=== PATIENT | female | born 1980 | race Caucasian/White ===

== ENCOUNTER 2021-10-07 07:37 | Outpatient (REF) | payer OTHER, SELFPAY | END 2021-10-07 07:38 | disposition home or self-care (01) | LOC: HO.HMGCLDS 07:37 | PROVIDERS: Visit Provider Internal Medicine | DX: Z20.822 Contact with and (suspected) exposure to COVID-19 (principal) | CPT/HCPCS: C9803; U0003; U0005 ==

== ENCOUNTER 2022-02-04 14:49 | Outpatient (REF) | payer OTHER, SELFPAY ==
--- NOTE | ~2022-02-04 | MM_ITS ---
EXAMINATION: MM DIAGNOSTIC DIGITAL BREAST TOMOSYNTHESIS, BILATERAL TARGETED LEFT BREAST ULTRASOUND CLINICAL INFORMATION: Left axillary pain and lump for a few months. The lifetime risk of breast cancer based on the Tyrer-Cuzick Model is 22.0%. Additional annual screening with breast MRI may be of benefit in women with a score of 20% or greater. COMPARISON: Mammography: None. TECHNIQUE: Digital breast tomosynthesis is performed in both the craniocaudal and mediolateral oblique views along with computer-aided detection (CAD). Synthesized 2D images are generated from the tomosynthesis. Spot compression view of the deep left breast on craniocaudal view was also performed. Targeted left breast ultrasound in region of pain within the axilla as well as about the deep central aspect of the left breast. FINDINGS: The breasts are heterogeneously dense, which may obscure small masses (ACR BI-RADS breast composition Category c). Within the right breast no suspicious abnormal dominant mass or grouping of microcalcifications identified. No region of architectural distortion is appreciated with tomographic image demonstrating one question region of architectural distortion to represent superimposition of fibroglandular tissue. Within the left breast about the deep central aspect seen on craniocaudal view there was a question of asymmetric density for which spot compression view was performed. On spot compression view the region of initial concern compressed out. On the spot compression film there was questioned to be a second separate density which was not seen on the first image and on initial tomographic view. This appears to be related to superposition of fibroglandular tissue as well. Targeted ultrasound evaluation about the region of pain in the axilla did not demonstrate any abnormal cystic or solid mass. No region of abnormal distal sound shadowing was appreciated. Targeted ultrasound evaluation to the deep central aspect of the left breast did not demonstrate any abnormal mass or shadowing. At the time of the initial examination patient was given recommendation of routine mammography, however, after further review of imaging and considering the patient's Tyrer-Cuzick model risk of 22% I am recommending 6-month followup left breast mammography. Breast MRI could be considered. MM/MM tomosynthesis diagnostic BI IMPRESSION: No suspicious right breast abnormality appreciated. Left breast densities appear to be related to superimposition of fibroglandular tissue. No ultrasound abnormality identified in region of pain within the left axilla as well as some scanning of the deep central aspect of the left breast. ASSESSMENT: BI-RADS 3: Probably Benign RECOMMENDATION: Diagnostic mammography in 6 months. Consideration of breast MRI. The patient will be called by patient navigator on Monday discussing the followup in 6 months. This patient's information was entered into a reminder system with a target due date for their next mammogram.
--- NOTE | ~2022-02-04 | US_ITS ---
EXAMINATION: US DIAGNOSTIC ULTRASOUND BREAST, LEFT CLINICAL INFORMATION: Mastodynia. COMPARISON: Mammography of same day. TECHNIQUE: Ultrasound of the breast is performed with real-time mcghee scale imaging and color Doppler. FINDINGS: Targeted ultrasound evaluation about the region of pain in the axilla did not demonstrate any abnormal cystic or solid mass. No region of abnormal distal sound shadowing was appreciated. Targeted ultrasound evaluation to the deep central aspect of the left breast did not demonstrate any abnormal mass or shadowing. At the time of the initial examination patient was given recommendation of routine mammography however after further review of imaging and considering the patient's entire model risk of 22% I recommend 6 month follow-up left breast mammography. US/US breast LT limited IMPRESSION: No suspicious right breast abnormality appreciated. Left breast densities appear to be related to superimposition of fibroglandular tissue. No ultrasound abnormality identified in region of pain within the left axilla as well as some scanning of the deep central aspect of the left breast. ASSESSMENT: BI-RADS 3: Probably Benign RECOMMENDATION: Diagnostic mammography in 6 months. Consideration of breast MRI. .
== END 2022-02-04 14:50 | disposition home or self-care (01) ==
LOC: HO.MAMMO 14:49
PROVIDERS: PCP Internal Medicine; Visit Provider Internal Medicine
DX: N64.4 Mastodynia (principal)
CPT/HCPCS: 76642; 77062; 77066

== ENCOUNTER 2022-09-08 08:35 | Outpatient (REF) | payer OTHER, SELFPAY ==
--- NOTE | ~2022-09-08 | MM_ITS ---
EXAMINATION: MM DIAGNOSTIC DIGITAL BREAST TOMOSYNTHESIS, LEFT CLINICAL INFORMATION: Short interval follow-up from diagnostic baseline for scattered parenchymal densities. Age 42. COMPARISON: Mammography: 02/04/2022 (baseline) left breast ultrasound 02/04/2022. TECHNIQUE: Digital breast tomosynthesis is performed in both the craniocaudal and mediolateral oblique views along with computer-aided detection (CAD). Synthesized 2D images are generated from the tomosynthesis. FINDINGS: There are scattered areas of fibroglandular density (ACR BI-RADS breast composition Category b). Parenchymal pattern is similar to baseline exam. There is no interval mass or developing density or architectural abnormality. The axilla and skin contours are unremarkable. Results are provided to the patient at time of visit by the technologist. MM/MM tomosynthesis diagnostic LT IMPRESSION: No mammographic evidence of malignancy. ASSESSMENT: BI-RADS 2: Benign RECOMMENDATION: Routine annual mammography screening, due in 6 months. This patient's information was entered into a reminder system with a target due date for their next mammogram.
== END 2022-09-08 08:36 | disposition home or self-care (01) ==
LOC: HO.MAMMO 08:35
PROVIDERS: Visit Provider Internal Medicine
DX: R92.2 Inconclusive mammogram (principal)
CPT/HCPCS: 77061; 77065

== ENCOUNTER 2022-12-31 09:57 | Outpatient (REF) | payer OTHER, SELFPAY ==
[2022-12-31 11:05] LABS: MANUAL DIFF FLAG NO
[2022-12-31 11:14] LABS: Basophils Percent Auto 0.5 % (0-2); Eosinophils Absolute Auto 0.2 X10*3/uL (0.0-0.4); Hematocrit 40.7 % (37.0-47.0); Hemoglobin 13.6 g/dl (12.0-16.0); Imm Gran Abs Auto 0.02 X10*3/uL (0.00-0.03); Imm Gran Pct Auto 0.3 % (0.0-0.4); Lymphocytes Absolute Auto 1.9 X10*3/uL (1.2-4.9); Lymphocytes Percent Auto 30.9 % (20-40); Mean Corpuscular HGB Conc 33.4 g/dl (31.0-35.0); Mean Corpuscular Hemoglobin 28.4 pg (27.0-33.0); Mean Platelet Volume 9.8 fL (9.4-12.3); Monocytes Absolute Auto 0.4 X10*3/uL (0.1-1.2); Monocytes Percent Auto 6.1 % (2-11); Neutrophils Absolute Auto 3.6 x10*3/uL (2.0-8.3); Neutrophils Percent Auto 59.2 % (45-73); Platelet Count 266 X10*3/uL (160-400); Red Blood Count 4.79 X10*6/uL (4.20-5.50); Red Cell Distribution Width 12.6 % (11.0-16.0); White Blood Count 6.1 X10*3/uL (4.8-10.8)
[2022-12-31 12:03] LABS: Alanine Aminotransferase 18 U/L (0-31); Albumin Level 3.8 g/dL (3.5-5.0); Alkaline Phosphatase 38 U/L (39-117); Anion Gap 11 (12-20); Aspartate Amino Transferase 17 U/L (5-31); Bilirubin Total 0.5 mg/dL (0.0-1.0); Blood Urea Nitrogen 10 mg/dL (9-16); Calcium 8.2 mg/dL (8.4-10.2); Carbon Dioxide 23 mmol/L (22-29); Chloride 108 mmol/L (96-108); Cholesterol 147 mg/dL; Estimated Glomerular Filt Rate > 60; Glucose Fasting 92 mg/dL (60-99); HDL Cholesterol 40 mg/dL; Iron 73 mcg/dL (30-160); LDL Cholesterol Calculated 98 mg/dl; Percent Iron Saturation 27 % (15-50); Potassium 4.3 mmol/L (3.3-5.1); Sodium 138 mmol/L (135-145); Total Iron Binding Capacity 270 mcg/dL (228-428); Total Protein 6.3 g/dL (6.5-8.0); Triglycerides 45 mg/dL; Unsaturated Iron Binding 197 ug/dL
[2022-12-31 12:19] LABS: TSH reflex Free T4 1.19 uIU/mL (0.32-4.0)
[2023-01-02 06:34] LABS: Follicle Stimulating Hormone 3.3 mIU/mL
== END 2022-12-31 09:58 | disposition home or self-care (01) ==
LOC: HO.HMGCLDS 09:57
PROVIDERS: PCP Internal Medicine; Visit Provider Internal Medicine
DX: Z00.00 Encounter for general adult medical examination without abnormal findings (principal); F41.9 Anxiety disorder, unspecified
CPT/HCPCS: 36415; 80053; 80061; 83001; 83540; 84443; 85025

== ENCOUNTER 2023-01-04 08:52 | Outpatient (REF) | payer OTHER, SELFPAY ==
--- NOTE | ~2023-01-04 | US_ITS ---
EXAMINATION: US THYROID CLINICAL INFORMATION: Nontoxic goiter, unspecified. COMPARISON: None available. TECHNIQUE: Linear transducer grayscale and color Doppler examination with attention to the region of the thyroid. FINDINGS: SIZE: Measurements of the thyroid lobes and nodules are given in sagittal, anteroposterior and transverse dimensions respectively. Right Thyroid Lobe: 5.1 x 2.2 x 1.4 cm, volume 7.9 mL. Parenchyma: The gland echotexture is heterogeneous. Thyroid vascularity is increased. Left Thyroid Lobe: 3.6 x 1.4 x 1.6 cm, volume 4.4 mL. Parenchyma: The gland echotexture is homogeneous. Thyroid vascularity is increased. Isthmus: 0.3 cm in maximum AP dimension. Estimated total number of nodules greater than or equal to 1 cm: 3. Tassel Maker nodules are described as follows: 1. Location: Right mid. Size: 1.0 x 0.90 x 0.83 cm, volume 0.40 mL. Nodule characteristics: Composition: Solid (2). Echogenicity: Very hypoechoic (3). Shape: Taller than wide (3). Margins: Smooth (0). Echogenic Foci: Macrocalcifications (1). Peripheral calcifications (2). ACR TI-RADS total points: 11 ACR TI-RADS category: 5 2. Location: Right inferior. Size: 1.2 x 0.64 x 1.3 cm, volume 0.50 mL. Nodule characteristics: Composition: Solid/almost completely solid (2). Echogenicity: Cannot be determined (1). Shape: Not taller than wide (0). Margins: Smooth (0). Echogenic Foci: Macrocalcifications (1). ACR TI-RADS total points: 4 ACR TI-RADS category: 4 3. Location: Right inferior. Size: 1.3 x 0.75 x 1.1 cm, volume 0.55 mL. Nodule characteristics: Composition: Mixed cystic and solid (1). Echogenicity: Cannot be determined (1). Shape: Not taller than wide (0). Margins: Smooth (0). Echogenic Foci: None (0). ACR TI-RADS total points: 2 ACR TI-RADS category: 2 NODES: No lymphadenopathy is seen in the tissue surrounding the thyroid gland. US/US thyroid IMPRESSION: Heterogeneous hypervascular thyroid gland, nonspecific. There is a 1 cm right mid gland TR 5 nodule for which further evaluation with FNA is recommended. There is a 1.3 cm right lower gland TR 4 nodule, for which a follow-up ultrasound in one year is advised. There is a 1.3 cm right lower gland TR 2 nodule, not meeting size criteria for further evaluation. ACR TI-RADS RECOMMENDATION REFERENCE: Ultrasound-guided fine-needle aspiration, followup ultrasound, no further follow up. * TR1 (0 point) and TR2 (2 points): No FNA or follow up. * TR3 (3 points): FNA if more than or equal to 2.5 cm in maximum dimension, followup ultrasound in 1, 3 and 5 years if 1.5 to 2.4 cm in maximum dimension. * TR4 (4-6 points): FNA if more than or equal to 1.5 cm in maximum dimension, followup ultrasound in 1, 2, 3 and 5 years if 1 to 1.4 cm in maximum dimension. * TR5 (more than or equal to 7 points): FNA if more than or equal to 1 cm in maximum dimension, followup ultrasound every year for 5 years if 0.5 to 0.9 cm in maximum dimension. * TR3, TR4 or TR5 nodules that are below the size threshold for followup receive no follow up.
== END 2023-01-04 08:53 | disposition home or self-care (01) ==
LOC: HO.HMGCX 08:52
PROVIDERS: PCP Internal Medicine; Visit Provider Internal Medicine
DX: E04.9 Nontoxic goiter, unspecified (principal)
CPT/HCPCS: 76536

== ENCOUNTER → 2023-01-18 09:46 | Outpatient (BNVA) | payer OTHER, SELFPAY | PROVIDERS: PCP Internal Medicine; Visit Provider Internal Medicine | DX: Z13.89 Encounter for screening for other disorder (principal) ==

== ENCOUNTER 2023-02-02 08:51 | Outpatient (REF) | payer OTHER, SELFPAY | END 2023-02-02 08:52 | disposition home or self-care (01) | LOC: HO.LNP 08:51 | PROVIDERS: PCP Internal Medicine; Visit Provider Surgery | DX: D17.22 Benign lipomatous neoplasm of skin and subcutaneous tissue of left arm (principal) | CPT/HCPCS: 11401; 11402; 88304 ==

== ENCOUNTER → 2023-02-15 08:53 | Outpatient (BNVA) | payer OTHER, SELFPAY | PROVIDERS: PCP Internal Medicine; Visit Provider Surgery ==

== ENCOUNTER 2023-03-23 08:01 | Outpatient (REF) | payer OTHER, SELFPAY ==
--- NOTE | 2023-03-23 08:45 | P.BOP_ITS ---
Brief Operative Note Date of Service: 03/23/23 Pre-op diagnosis: Multinodular Thyroid Procedure: This is doctor Lisa Ramachandran. This is an ultrasound-guided fine-needle aspiration report. Indication: Multinodular Thyroid Porcedure: Procedure was explained to the patient. Alternatives, the risk and benefits were discussed. Written consent was obtained. A time-out was also obtained. After sterile preparation, 1 ml of 1% lidocaine solution was applied subcutaneously for anesthetic effect. Then Fine-needle aspiration of a right lower pole lateral 1.0 cm thyroid nodule was performed using direct ultrasound guidance to confirm accurate needle placement. Three aspirations were made using 27 gauge needles. Samples were submitted for cytology. One pass was dedicated for [employer] Gene sequencing judicial registrar testing. Then Fine-needle aspiration of a right lower pole medial 1.1 cm thyroid nodule was performed using direct ultrasound guidance to confirm accurate needle placement. Three aspirations were made using 27 gauge needles. Samples were submitted for cytology. One pass was dedicated for Afir[employer] Gene sequencing judicial registrar testing. The patient tolerated the procedure well. Aftercare instructions were provided. Impression: Uncomplicated fine needle aspiration biopsy of a right lower pole lateral 1.0 cm thyroid nodule and a right lower pole medial 1.1 cm thyroid nodule under ultrasound guidance. Surgeon: Lisa Ramachandran, DO Was an Video Games Mechanic used for this Procedure?: No Estimated blood loss (mL): 0
== END 2023-03-23 08:02 | disposition home or self-care (01) ==
LOC: HO.US 08:01
PROVIDERS: PCP Internal Medicine; Visit Provider Internal Medicine
DX: E04.2 Nontoxic multinodular goiter (principal)
CPT/HCPCS: 10005; 10006; 88172; 88173

== ENCOUNTER 2023-05-04 13:03 | Outpatient (AMB) | payer OTHER, SELFPAY ==
--- NOTE | 2023-05-04 13:12 | A.OFFVIS_ITS ---
Intake Intake Visit Reasons: FNA Results Allergies No Known Allergies Allergy (Verified 05/04/23 13:12) Medication List - Last Reconciled 05/04/23 by Lisa Ramachandran, DO bupropion HCl 300 mg PO QAM HPI HPI Comments History of Present Illness Details 42 YO Female who is seen in F/U for a multinodular thyroid. She states her PCP palpated a thyroid nodule during her yearly physical. A thyroid US was subsequently ordered which revealed multiple bilateral nodules. She was subsequently referred to Endocrinology. 03/23/2023 she underwent FNA biopsy of her right lower pole 1.0 cm and right lower pole 1.1 cm thyroid nodules. Both with benign cytology. She does report the sensation of swelling in the neck and occasional R sided early pain. She denies any compressive symptoms currently. TSH was WNL. She denies any personal history of head or neck irradiation. She denies any f amily history of thyroid cancer. Thyroid US: 01/04/2023 Right Thyroid Lobe: 5.1 x 2.2 x 1.4 cm, volume 7.9 mL. Parenchyma: The gland echotexture is heterogeneous. Thyroid vascularity is increased. Left Thyroid Lobe: 3.6 x 1.4 x 1.6 cm, volume 4.4 mL. Parenchyma: The gland echotexture is homogeneous. Thyroid vascularity is increased. Isthmus: 0.3 cm in maximum AP dimension. Estimated total number of nodules greater than or equal to 1 cm: 3. Casing Machine Operator nodules are described as follows: 1. Location: Right mid. ?? ? Size: 1.0 x 0.90 x 0.83 cm, volume 0.40 mL. ?? ? Nodule characteristics: ?? ? Composition: Solid (2). ?? ? Echogenicity: Very hypoechoic (3). ?? ? Shape: Taller than wide (3). ?? ? Margins: Smooth (0). ?? ? Echogenic Foci: Macrocalcifications (1). Peripheral calcifications (2). ?? ? ACR TI-RADS total points: 11 ?? ? ACR TI-RADS category: 5 2. Location: Right inferior. ?? ? Size: 1.2 x 0.64 x 1.3 cm, volume 0.50 mL. ?? ? Nodule characteristics: ?? ? Composition: Solid/almost completely solid (2). ?? ? Echogenicity: Cannot be determined (1). ?? ? Shape: Not taller than wide (0). ?? ? Margins: Smooth (0). ?? ? Echogenic Foci: Macrocalcifications (1). ?? ? ACR TI-RADS total points: 4 ?? ? ACR TI-RADS category: 4 3. Location: Right inferior. ?? ? Size: 1.3 x 0.75 x 1.1 cm, volume 0.55 mL. ?? ? Nodule characteristics: ?? ? Composition: Mixed cystic and solid (1). ?? ? Echogenicity: Cannot be determined (1). ?? ? Shape: Not taller than wide (0). ?? ? Margins: Smooth (0). ?? ? Echogenic Foci: None (0). ?? ? ACR TI-RADS total points: 2 ?? ? ACR TI-RADS category: 2 NODES: No lymphadenopathy is seen in the tissue surrounding the thyroid gland. 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 She will F/U in 1 years time with a repeat thyroid US and labs in order to assess for concerning growth or changes which may warrant repeat biopsy. I advised her to notify us of any compressive symptoms in the meantime. All questions were answered. She is in agreement with this plan of care. I spent 20 minutes in reviewing the record, seeing the patient and documenting in the medical record, including 5 minutes on the phone with the Patient. Telehealth Telehealth Location of provider rendering services: practice address Location of patient: address on file Patient Identification confirmed using: Name, : Yes Telehealth method: voice only Patient verbally consented to treatment: Yes Patient verbally consented to billing insurance company: Yes Patient informed of any privacy concerns related to visit: Yes Coding Level of Care Code Tele Est Pt Level 3 (07213) Diagnoses Multinodular thyroid E04.2
== END 2023-05-04 13:14 | disposition home or self-care (01) ==
LOC: HO.ENCR 13:03
PROVIDERS: PCP Internal Medicine; Visit Provider Internal Medicine
DX: E04.2 Nontoxic multinodular goiter (principal)
CPT/HCPCS: 99213

== ENCOUNTER → 2023-05-04 13:03 | Outpatient (BNVA) | payer OTHER, SELFPAY | PROVIDERS: PCP Internal Medicine; Visit Provider Internal Medicine ==

== ENCOUNTER 2023-05-30 13:25 | Outpatient (AMB) | payer OTHER, SELFPAY ==
--- NOTE | 2023-05-30 13:31 | MHC.OFFWIV ---
Intake Vital Signs 05/30/23 13:35 Height 5 ft 3 in Weight 190 lb BMI 33.7 BP 92/70 Blood Pressure Location Lt brachial Position Sitting Pulse 76 Pulse Source Pulse Oximeter Temp 98.2 F Temp Source Oral Pulse Oximetry (%) 98 Oxygen Delivery Method Room Air Intake Visit Reasons: EP Chest pressure/tired Intake Note: Patient here because she woke up this morning chest pressure, states its happened a few times and will come and go but when it happens it will last a couple of hours and feels winded/weak. Patient Tobacco Use Status: Former Tobacco user (6 years ago ) Allergies No Known Allergies Allergy (Verified 05/30/23 13:34) Do you need a note to return to daycare/school/sports/work: Yes HPI EP Chest pressure/tired HPI Details 42-year-old female patient presents today for complaint of intermittent midsternal chest pressure. She reports this has been ongoing for about a year. She reports that she would experienced midsternal chest pressure radiating to the knees her left breast, and this will last upwards of a couple of hours. It is not associated with any dizziness, shortness of breath, arm weakness or pain, jaw pain, nausea/vomiting, or palpitations. She does not associated with any particular events, for example it does not occur after any exercise or stressful event. Denies any cardiac history. Sees Dr. Paez for PCP. Recent annual exam in December without abnormal findings. She came in today as she had an episode of this pressure this morning. On Wellbutrin only. 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, 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 Tobacco Use Status: Former Tobacco user (6 years ago ) Tobacco use type: Cigarette Years Smoked: 20 plus e-Cigarette/Vaping Use: Currently Using service: No Current occupational status: employed Cognitive needs: No Hearing needs: No Vision needs: Yes Review of Systems Const All systems reviewed & are unremarkable except as noted in HPI and below Physical Exam Vital Signs: Last Vital Signs Temp 98.2 F 05/30/23 13:35 Pulse 76 05/30/23 13:35 BP 92/70 05/30/23 13:35 Pulse Ox 98 05/30/23 13:35 Oxygen Delivery Method Room Air 05/30/23 13:35 BMI result Body Mass Index 33.7 Const General: cooperative, healthy appearing, comfortable and no acute distress Nutritional Appearance: average body habitus Neck Neck: Yes no lymphadenopathy Chest Chest palpation & inspection: normal inspection of the chest and normal palpation of entire chest wall Resp Effort & Inspection: normal respiratory effort and able to speak in complete sentences Auscultation: clear to auscultation bilaterally Cardio Jugular venous distension: no JVD Palpation: normal PMI Rate: regular rate Rhythm: regular rhythm Heart sounds: S1 normal heart sound present and S2 normal heart sound present Peripheral pulses: Peripheral pulses 2+ throughout Skin General skin exam: no rashes or lesions noted Extrem General: Yes capillary refill normal and Yes no clubbing, cyanosis or edema Psych Appearance: grossly normal Mental Status: mental status grossly normal Speech and movement: Normal speech and movement present Assessment & Plan Assessment & Plan (1) Chest pressure: Code(s): R07.89 - Other chest pain Plan: Patient with intermittent chest pain for about 1 year now. No prior workup for this. It is not associated with any dizziness, shortness of breath, arm weakness or pain, jaw pain, nausea/vomiting, or palpitations. Not associated with exertion or stress per patient. Vitals in the office are stable. EKG done in the office shows normal findings, NSR 69. I discussed with patient that the ED would be the most appropriate environment to rule out cardiac event, which she understands. She does not with to be evaluated in ED at this time. I would like her to f/u with her PCP Dr. Paez in the near future for possible additional workup for this. She agrees and will contact office to schedule visit. If symptoms worsen or new symptoms occur, she should go to the ED for prompt evaluation. She verbalizes understanding of this and agrees to plan. Orders: Orders AMB EKG-In Office Today R07.89 - Other chest pain Coding Level of Care Code Est Pt Level 3 (06760) Diagnoses Chest pressure R07.89
[2023-05-30 13:35] VITALS: BP 92/70; PULSE 76; TEMP 36.8; O2SAT 98; BMI 33.7
== END 2023-05-30 14:15 | disposition home or self-care (01) ==
PROVIDERS: PCP Internal Medicine; Visit Provider Nurse Practitioner Family
DX: R07.89 Other chest pain (principal)
CPT/HCPCS: 93000; 99213

== ENCOUNTER 2023-05-31 08:02 | Outpatient (REF) | payer OTHER, SELFPAY ==
[2023-05-31 12:33] LABS: Free T4 (Free Thyroxine) 0.82 ng/dL (0.71-1.85); Thyroid Stimulating Hormone 1.36 uIU/mL (0.32-4.0)
== END 2023-05-31 08:03 | disposition home or self-care (01) ==
LOC: HO.HMGCLDS 08:02
PROVIDERS: PCP Internal Medicine; Visit Provider Internal Medicine
DX: E04.2 Nontoxic multinodular goiter (principal)
CPT/HCPCS: 36415; 84439; 84443

== ENCOUNTER 2024-01-03 11:20 | Outpatient (AMB) | payer OTHER, SELFPAY ==
[2024-01-03 11:46] VITALS: BP 118/72; PULSE 87; O2SAT 99; BMI 31.9
--- NOTE | 2024-01-03 11:46 | MHC.PC.OV ---
Vital Signs 01/03/24 11:46 Height 5 ft 3 in Weight 180 lb BMI 31.9 BP 118/72 Blood Pressure Location Rt brachial Position Sitting Pulse 87 Pulse Source Pulse Oximeter Pulse Oximetry (%) 99 Oxygen Delivery Method Room Air Intake Visit Reasons: Annual PE Intake Note: Pt is here for her Annual PE Is last menstrual period known: Yes Last menstrual period: 12/18/23 Allergies No Known Allergies Allergy (Verified 01/03/24 11:51) Medication List - Last Reconciled 01/03/24 by Yudith Paez MD bupropion HCl 300 mg PO QAM Tobacco use date assessed: 01/03/24 Dental Screening Dental Screen Date: 01/03/24 Did you have a dental visit in the last 12 months?: Yes Did you have a dental problem in the last 6 months where you did not have access to dental care?: No Was dental information given to patient?: Patient has dentist HPI Annual PE HPI Details Pt presents for PE. 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 1. Little interest or pleasure in doing things: several days 2. Feeling down, depressed, or hopeless: several days 3. Trouble falling or staying asleep, or sleeping too much: more than half the days 4. Feeling tired or having little energy: several days 5. Poor appetite or overeating: not at all 6. Feeling bad about yourself - or that you are a failure or have let yourself or your family down: more than half the days 7. Trouble concentrating on things, such as reading the newspaper or watching television: several days 8. Moving or speaking so slowly that other people could have noticed. Or the opposite - being so fidgety or restless that you have been moving around a lot more than usual: not at all 9. Thoughts that you would be better off or of hurting yourself in some way: not at all Total score: 8 Depression Screening Interpretation: Negative Depression Screening Done: Yes Source: Developed by Drs. Raymundo Weinstein, Estrella Danielle, Denzel Fong and colleagues, with an educational monisha from [employer]. Thrive Questionnaire Date Thrive assessed: 01/03/24 I am a: Patient What is your living situation today?: I have a steady place to live Within the past 12 months, did the food you bought not last and you didn't have the money to get more?: Never true Within the past 12 months, did you worry whether your food would run out before you got money to buy more?: Never true Do you have trouble paying for medicines?: No Do you have trouble getting transportation to medical appointments?: No Do you have trouble paying your heating and electricity bill?: No Do you have trouble taking care of your child, family member or friend?: No Do you have trouble with day-to-day activities such as bathing, preparing meals, shopping, managing finances, etc.?: No Are you currently unemployed and looking for a job?: No Are you interested in more education?: No THRIVE Score: 0 AUDIT C Alcohol Use Questionnaire (AUDIT-C) 1. How often do you have a drink containing alcohol?: Never Total Score: 0 ANANDA-7 AMB Questionnaire ANANDA-7 Date ANANDA - 7 assessed: 01/03/24 Feeling nervous, anxious, or on edge: 3 = Nearly every day Not being able to stop or control worryin = More than half the days Worrying too much about different things: 2 = More than half the days Trouble relaxin = Several days Being so restless that it is hard to sit still: 2 = More than half the days Becoming easily annoyed or irritable: 3 = Nearly every day Feeling afraid as if something awful might happen: 2 = More than half the days Total ANANDA-7 score (0-4 normal; 5-9 mild; 10-14 moderate; 15-21 severe): 15 Source: Developed by Drs. Raymundo Weinstein, Estrella Danielle, Denzel Fong and colleagues, with an educational monisha from [employer]. Review of Systems Const All systems reviewed & are unremarkable except as noted in HPI and below Reports no additional complaints Eyes Reports no additional complaints ENT Reports no additional complaints Card Reports no additional complaints Resp Reports no additional complaints GI Reports no additional complaints Reports no additional complaints Physical exam (Primary Care) Vital Signs: Last Vital Signs Pulse 87 01/03/24 11:46 BP 118/72 01/03/24 11:46 Pulse Ox 99 01/03/24 11:46 Oxygen Delivery Method Room Air 01/03/24 11:46 BMI result Body Mass Index 31.9 Tobacco/Smoking Status: Tobacco use Status Tobacco use date assessed 01/03/24 01/03/24 11:53 Patient Tobacco Use Status Former Tobacco user (6 years 01/03/24 11:53 ago ) Tobacco use type Cigarette 01/03/24 11:53 e-Cigarette/Vaping Use Currently Using 01/03/24 11:53 PHQ-9: PHQ-9 Score PHQ-9: Total score 8 01/03/24 12:06 Depression Screening Interpretation: Negative Thrive Assessment: Date of Thrive Assessment Date Thrive assessed 01/03/24 01/03/24 11:56 Const General: no acute distress HENMT Head: Yes normal to inspection Ears: hearing grossly normal bilaterally General nose exam: Normal external nose present Face and sinus: Yes normal facial exam Mouth: Normal oral and palatal mucosa present Throat: Yes posterior oropharynx normal Eyes General: appearance normal, both eyes and all related structures Neck Neck: Yes no lymphadenopathy and Yes supple Resp Effort & Inspection: normal respiratory effort Auscultation: clear to auscultation bilaterally Cardio Rhythm: regular rhythm Heart sounds: S1 normal heart sound present and S2 normal heart sound present GI Inspection: Yes normal to inspection Palpation (GI): Soft to palpation Percussion: Yes normal to percussion Auscultation: normal bowel sounds Assessment and Plan Assessment & Plan (1) Multinodular thyroid: Comment: 2 nodules bx negative 02/28, f/u [facility] [place], patient needs annual thyroid ultrasound to monitor Code(s): E04.2 - Nontoxic multinodular goiter Plan: Schedule thyroid US (2) Thyroid nodule: Code(s): E04.1 - Nontoxic single thyroid nodule (3) Perimenopausal: Code(s): N95.1 - Menopausal and female climacteric states Plan: check FSH, f/u with leasing specialist (4) Depression: Code(s): F32.9 - Major depressive disorder, single episode, unspecified Plan: Continue bupropion, stress and anxiety management regular physical activity and mindfulness discussed with the patient (5) Annual physical exam: Code(s): Z00.00 - Encounter for general adult medical examination without abnormal findings Plan: Well-balanced diet regular physical activity discussed with the patient .she is up-to-date with the mammogram and Pap smear by leasing specialist Orders: Orders Comprehensive [place]. Panel Fast Today E04.2 - Nontoxic multinodular goiter, F32.9 - Major depressive disorder, single episode, unspecified, N95.1 - Menopausal and female climacteric states, Z00.00 - Encounter for general adult medical examination without abnormal findings Complete Blood Count Auto Diff Today E04.2 - Nontoxic multinodular goiter, F32.9 - Major depressive disorder, single episode, unspecified, N95.1 - Menopausal and female climacteric states, Z00.00 - Encounter for general adult medical examination without abnormal findings Lipid Panel Today E04.2 - Nontoxic multinodular goiter, F32.9 - Major depressive disorder, single episode, unspecified, N95.1 - Menopausal and female climacteric states, Z00.00 - Encounter for general adult medical examination without abnormal findings TSH reflex Free T4 Today E04.2 - Nontoxic multinodular goiter, F32.9 - Major depressive disorder, single episode, unspecified, N95.1 - Menopausal and female climacteric states, Z00.00 - Encounter for general adult medical examination without abnormal findings Vitamin D 25-OH Total Today E04.2 - Nontoxic multinodular goiter, F32.9 - Major depressive disorder, single episode, unspecified, N95.1 - Menopausal and female climacteric states, Z00.00 - Encounter for general adult medical examination without abnormal findings US thyroid Today E04.1 - Nontoxic single thyroid nodule, E04.2 - Nontoxic multinodular goiter UA w Microscopic Today E04.2 - Nontoxic multinodular goiter, F32.9 - Major depressive disorder, single episode, unspecified, N95.1 - Menopausal and female climacteric states, Z00.00 - Encounter for general adult medical examination without abnormal findings Follicle Stimulating Hormone Today E04.2 - Nontoxic multinodular goiter, F32.9 - Major depressive disorder, single episode, unspecified, N95.1 - Menopausal and female climacteric states, Z00.00 - Encounter for general adult medical examination without abnormal findings Medications: Refilled bupropion HCl 300 mg PO QAM 90 tabs 3RF Coding Level of Care Code Est Pt Prev Care 40-64y(03021) Diagnoses Multinodular thyroid E04.2 Thyroid nodule E04.1 Perimenopausal N95.1 Depression F32.9 Annual physical exam Z00.00
== END 2024-01-03 12:29 | disposition home or self-care (01) ==
PROVIDERS: PCP Internal Medicine; Visit Provider Nurse Practitioner Family
DX: Z00.00 Encounter for general adult medical examination without abnormal findings (principal); N95.1 Menopausal and female climacteric states; E04.2 Nontoxic multinodular goiter; E04.1 Nontoxic single thyroid nodule; F32.9 Major depressive disorder, single episode, unspecified
CPT/HCPCS: 99396

== ENCOUNTER 2024-01-16 08:01 | Outpatient (REF) | payer OTHER, SELFPAY ==
--- NOTE | ~2024-01-16 | US_ITS ---
EXAMINATION: US THYROID CLINICAL INFORMATION: Nontoxic multinodular goiter. COMPARISON: Thyroid ultrasound 01/04/2023. Ultrasound-guided thyroid biopsy 03/23/2023. TECHNIQUE: Linear transducer grayscale and color Doppler examination with attention to the region of the thyroid. FINDINGS: SIZE: Measurements of the thyroid lobes and nodules are given in sagittal, anteroposterior and transverse dimensions respectively. Right Thyroid Lobe: 5.2 x 2.1 x 1.3 cm, volume 7.3 mL. Previously 5.1 x 2.2 x 1.4 cm, volume 7.9 mL. Parenchyma: The gland echotexture is heterogeneous. Thyroid vascularity is increased. Left Thyroid Lobe: 3.7 x 1.1 x 1.5 cm, volume 3.0 mL. Previously 3.6 x 1.4 x 1.6 cm, volume 4.4 mL. Parenchyma: The gland echotexture is heterogeneous. Thyroid vascularity is increased. Isthmus: 0.4 cm in maximum AP dimension. Previously 0.3 cm. Estimated total number of nodules greater than or equal to 1 cm: 3. Spine Nurse nodules are described as follows: 1. Location: Right mid pole. Size: 1.1 x 0.8 x 0.9 cm, volume 0.42 mL. Previously: 1.0 x 0.9 x 0.8 cm, volume 0.40 mL. Nodule characteristics: Composition: Solid (2). Echogenicity: Very hypoechoic (3). Shape: Not taller than wide (0). Margins: Smooth (0). Echogenic Foci: Punctate echogenic foci (3). ACR TI-RADS total points: 8 Previous: 11 ACR TI-RADS category: 5 Previous: 5 2. Location: Right lower pole. Size: 1.3 x 0.6 x 1.3 cm, volume 0.56 mL. Previously: 1.2 x 0.6 x 1.3 cm, volume 0.50 mL. Nodule characteristics: Composition: Solid/almost completely solid (2). Echogenicity: Hyperechoic (1). Shape: Not taller than wide (0). Margins: Smooth (0). Echogenic Foci: Macrocalcifications (1). ACR TI-RADS total points: 4 Previous: 4 ACR TI-RADS category: 4 Previous: 4 3. Location: Right lower pole. Size: 0.9 x 0.7 x 1.1 cm, volume 0.36 mL. Previously: 1.3 x 0.8 x 1.1 cm, volume 0.55 mL. Nodule characteristics: Composition: Mixed cystic and solid (1). Echogenicity: Isoechoic (1). Shape: Not taller than wide (0). Margins: Smooth (0). Echogenic Foci: None (0). ACR TI-RADS total points: 2 Previous: 2 ACR TI-RADS category: 2 Previous: 2 NODES: No lymphadenopathy is seen in the tissue surrounding the thyroid gland. US/US thyroid IMPRESSION: Stable thyroid nodules as measured above. Recommend follow-up ultrasound in one year. ACR TI-RADS RECOMMENDATION REFERENCE: Ultrasound-guided fine-needle aspiration, follow up ultrasound, no further followup. * TR1 (0 point) and TR2 (2 points): No FNA or followup * TR3 (3 points): FNA if more than or equal to 2.5 cm in maximum dimension, follow up ultrasound in 1, 3 and 5 years if 1.5 to 2.4 cm in maximum dimension. * TR4 (4-6 points): FNA if more than or equal to 1.5 cm in maximum dimension, follow up ultrasound in 1, 2, 3 and 5 years if 1 to 1.4 cm in maximum dimension. * TR5 (more than or equal to 7 points): FNA if more than or equal to 1 cm in maximum dimension, follow up ultrasound every year for 5 years if 0.5 to 0.9 cm in maximum dimension. * TR3, TR4 or TR5 nodules that are below the size threshold for follow up receive no followup.
[2024-01-16 10:27] LABS: Appearance Urine Cloudy; Color Urine Dark Yellow; Glucose Urine UA Negative (Negative); Leukocyte Esterase Urine Small (1+) (Negative); Nitrite Urine Negative (Negative); PH 6.5 (5.0-9.0); Specific Gravity - Urine 1.025 (1.005-1.025); UMIC TRIGGER UA YES; Urine Blood Negative (Negative); Urine Ketones Negative (Negative); Urine Protein Negative (Neg-Trace)
[2024-01-16 10:29] LABS: MANUAL DIFF FLAG NO
[2024-01-16 10:33] LABS: Bacteria Urine 4+ (None Seen); Hyaline Casts Urine 0-2 /LPF (0-2); RBC Urine 0-2 /HPF (0-2)
[2024-01-16 10:38] LABS: Basophils Percent Auto 0.5 % (0-2); Eosinophils Absolute Auto 0.1 X10*3/uL (0.0-0.4); Eosinophils Percent Auto 1.7 % (0-4); Hematocrit 42.1 % (37.0-47.0); Imm Gran Abs Auto 0.02 X10*3/uL (0.00-0.03); Imm Gran Pct Auto 0.3 % (0.0-0.4); Lymphocytes Absolute Auto 1.7 X10*3/uL (1.2-4.9); Lymphocytes Percent Auto 26.5 % (20-40); Mean Corpuscular HGB Conc 33.3 g/dl (31.0-35.0); Mean Corpuscular Hemoglobin 28.6 pg (27.0-33.0); Mean Corpuscular Volume 86.1 fL (80.0-98.0); Mean Platelet Volume 10.1 fL (9.4-12.3); Monocytes Absolute Auto 0.4 X10*3/uL (0.1-1.2); Monocytes Percent Auto 6.2 % (2-11); Neutrophils Absolute Auto 4.1 x10*3/uL (2.0-8.3); Neutrophils Percent Auto 64.8 % (45-73); Platelet Count 267 X10*3/uL (160-400); Red Blood Count 4.89 X10*6/uL (4.20-5.50); Red Cell Distribution Width 12.6 % (11.0-16.0); White Blood Count 6.3 X10*3/uL (4.8-10.8)
[2024-01-16 11:40] LABS: Alanine Aminotransferase 18 U/L (0-31); Alkaline Phosphatase 34 U/L (39-117); Anion Gap 9 (12-20); Aspartate Amino Transferase 16 U/L (5-31); Bilirubin Total 0.5 mg/dL (0.0-1.0); Blood Urea Nitrogen 8 mg/dL (9-16); Calcium 8.6 mg/dL (8.4-10.2); Carbon Dioxide 25 mmol/L (22-29); Chloride 108 mmol/L (96-108); Cholesterol 158 mg/dL (<200); Estimated Glomerular Filt Rate > 60; Glucose Fasting 91 mg/dL (60-99); HDL Cholesterol 46 mg/dL (>40); LDL Cholesterol Calculated 101 mg/dL (<100); Potassium 3.9 mmol/L (3.3-5.1); Sodium 138 mmol/L (135-145); TSH reflex Free T4 1.68 uIU/mL (0.32-4.0); Total Protein 6.8 g/dL (6.5-8.0); Triglycerides 55 mg/dL (<150); Vitamin D 25-OH Total 29.9 ng/mL (>30)
[2024-01-17 06:28] LABS: Follicle Stimulating Hormone 3.6 mIU/mL
== END 2024-01-16 08:02 | disposition home or self-care (01) ==
LOC: HO.HMGCX 08:01
PROVIDERS: PCP Internal Medicine; Visit Provider Internal Medicine
DX: E04.2 Nontoxic multinodular goiter (principal); F32.9 Major depressive disorder, single episode, unspecified; N95.1 Menopausal and female climacteric states; Z13.6 Encounter for screening for cardiovascular disorders; Z00.00 Encounter for general adult medical examination without abnormal findings
CPT/HCPCS: 36415; 76536; 80053; 80061; 81001; 82306; 83001; 84443; 85025

== ENCOUNTER 2024-05-01 12:42 | Outpatient (AMB) | payer OTHER, SELFPAY ==
[2024-05-01 12:45] VITALS: BP 119/65; PULSE 68; BMI 31.7
--- NOTE | 2024-05-01 12:45 | MHC.OFFVIS ---
Vital Signs 05/01/24 12:45 Height 5 ft 3 in Weight 179 lb BMI 31.7 BP 119/65 Blood Pressure Location Rt brachial Position Sitting Pulse 68 Intake Visit Reasons: Mole on back Intake Note: This patient presents for an assessment for skin lesion of back. Pt c/o; Onset about 2 years, reports discomfort, reports tenderness, reports increase in size, mid upper back. Transition Program Manager Required: No Accompanied by: Self / Same As Patient Allergies No Known Allergies Allergy (Verified 05/01/24 12:56) Medication List - Last Reconciled 05/01/24 by Erwin Gramajo MD bupropion HCl XL 300 mg PO QAM HPI HPI Mole on back: Details: 43-year-old female here for a cyst on the upper back. She says she has had this for over a year. This has been increasing in size and has been causing more discomfort and pain. She denies any drainage. 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, 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 Tobacco Use Status: Former Tobacco user (6 years ago ) Tobacco use type: Cigarette Years Smoked: 20 plus e-Cigarette/Vaping Use: Currently Using service: No Current occupational status: employed Cognitive needs: No Hearing needs: No Vision needs: Yes Review of Systems Const Denies chills and Denies fever(s) Card Denies chest pain, Denies dyspnea and Denies dyspnea on exertion Resp Denies cough, Denies dyspnea and Denies dyspnea on exertion GI Denies hematochezia and Denies change in bowel habits Denies hematuria Musc Denies back pain and Denies limited range of motion Neuro Denies focal weakness and Denies convulsions Psych Denies depression and Denies mood swings Physical Exam Vital Signs: Last Vital Signs Pulse 68 05/01/24 12:45 BP 119/65 05/01/24 12:45 BMI result Body Mass Index 31.7 Const General: comfortable and no acute distress Orientation/consciousness: patient oriented x3 Neck Neck: Yes no lymphadenopathy Resp Auscultation: clear to auscultation bilaterally Cardio Rhythm: regular rhythm GI Palpation (GI): Soft to palpation, nontender and no guarding Back/Spine/Pelvis Other: Cystic induration on the upper back, about 2.2 cm in diameter, not fluctuant, no redness Neuro General: patient oriented x3 Assessment & Plan Assessment & Plan (1) Epidermal cyst: Code(s): L72.0 - Epidermal cyst Category: Medical Plan: She has this epidermal cyst on the upper back that she wants removed. I explained the technique of excision under local anesthesia. I reviewed the risks including but not limited to bleeding, infections and poor healing, as well as the benefits and alternatives. She understands and wants to proceed This will be done in the office on her next visit. Coding Level of Care Code Est Pt Level 3 (95722) Diagnoses Epidermal cyst L72.0
== END 2024-05-01 13:15 | disposition home or self-care (01) ==
PROVIDERS: PCP Internal Medicine; Visit Provider Surgery
DX: L72.0 Epidermal cyst (principal)
CPT/HCPCS: 99213

== ENCOUNTER → 2024-05-01 12:42 | Outpatient (BNVA) | payer OTHER, SELFPAY | PROVIDERS: PCP Internal Medicine; Visit Provider Surgery ==

== ENCOUNTER 2024-06-06 09:51 | Outpatient (REF) | payer OTHER, SELFPAY | END 2024-06-06 09:52 | disposition home or self-care (01) | LOC: HO.LNP 09:51 | PROVIDERS: PCP Internal Medicine; Visit Provider Surgery | DX: L72.0 Epidermal cyst (principal) | CPT/HCPCS: 11403; 88304 ==

== ENCOUNTER 2024-06-06 09:51 | Outpatient (AMB) | payer OTHER, SELFPAY ==
--- NOTE | 2024-06-06 09:59 | MHC.OFFVIS ---
Intake Visit Reasons: excision mole on back Intake Note: Office procedure: excision mole on back Pt is here for excision, reports no changes since last visit. Mortgage Or Loan Underwriter Required: No Accompanied by: Self / Same As Patient Allergies No Known Allergies Allergy (Verified 06/06/24 10:18) HPI HPI excision mole on back: Details: She is here for excision of an epidermal cyst from the back. 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 The area of the cyst on the upper back was prepped and draped. Lidocaine 1% was used for local anesthesia. I made an elliptical incision on the skin overlying this cystic induration with a blade 15. This was carried down through the full-thickness of the skin and subcutaneous fat to excise the entire indurated area. The cystic induration about 2.2 cm in widest dimension I closed the incision with full-thickness nylon 3-0 simple interrupted sutures. Dressings were applied. The procedure was completed. She tolerated procedure well. There were no immediate complications. 30215-ypihw/arms/legs 2.1-3cm Procedure code (CPT) selection complete Assessment & Plan Assessment & Plan (1) Epidermal cyst: Code(s): L72.0 - Epidermal cyst Category: Medical Plan: Excision was done in the office under local anesthesia. She tolerated procedure well. She was given wound care instructions. I will see her in the office in about 2 weeks for removal sutures. Coding Level of Care Code Procedure Only Diagnoses Epidermal cyst L72.0 CPT Codes Trunk/Arms/Legs - CPT: 74395-tdsyz/arms/legs 2.1-3cm ([id number])
== END 2024-06-06 10:26 | disposition home or self-care (01) ==
PROVIDERS: PCP Internal Medicine; Visit Provider Surgery
DX: L72.0 Epidermal cyst (principal)
CPT/HCPCS: 11403

== ENCOUNTER 2024-06-26 09:26 | Outpatient (AMB) | payer OTHER, SELFPAY ==
--- NOTE | 2024-06-26 09:28 | A.OFFVIS_ITS ---
Intake Visit Reasons: stitches removal Intake Note: This patient presents for follow-up assessment status post excision epidermal cyst of back. (06/06/2024) Patient c/o; reports no complaints at this time. Electronic Coils Supervisor Required: No Accompanied by: Self / Same As Patient Allergies No Known Allergies Allergy (Verified 06/26/24 09:29) HPI HPI stitches removal: Details: She underwent excision of an epidermal cyst from the back under local anesthesia last 06/06/2024. She tolerated procedure well and denies complaints at this time. 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 Tobacco Use Status: Former Tobacco user Tobacco use type: Cigarette Years Smoked: 20 plus e-Cigarette/Vaping Use: Currently Using service: No Current occupational status: employed Cognitive needs: No Hearing needs: No Vision needs: Yes Review of Systems Const Denies chills and Denies fever(s) Card Denies chest pain, Denies dyspnea and Denies dyspnea on exertion Resp Denies cough, Denies dyspnea and Denies dyspnea on exertion GI Denies hematochezia and Denies change in bowel habits Denies hematuria Musc Denies back pain and Denies limited range of motion Neuro Denies focal weakness and Denies convulsions Psych Denies depression and Denies mood swings Physical Exam Const General: comfortable and no acute distress Back/Spine/Pelvis Other: Excision site from the back is well healed, not infected, sutures intact Assessment & Plan Assessment & Plan (1) Epidermal cyst: Code(s): L72.0 - Epidermal cyst Category: Medical Plan: Status post excision. I removed all her sutures. The incision is well healed. Her path report shows a ruptured epidermal cyst. She can follow up on a p.r.n. basis. Coding Level of Care Code Global (09680) Diagnoses Epidermal cyst L72.0
== END 2024-06-26 09:39 | disposition home or self-care (01) ==
PROVIDERS: PCP Internal Medicine; Visit Provider Surgery
DX: L72.0 Epidermal cyst (principal)
CPT/HCPCS: 99024

== ENCOUNTER → 2024-06-26 09:26 | Outpatient (BNVA) | payer OTHER, SELFPAY | PROVIDERS: PCP Internal Medicine; Visit Provider Surgery | DX: L72.0 Epidermal cyst (principal) ==

== ENCOUNTER 2024-12-16 15:56 | Outpatient (AMB) | payer OTHER, SELFPAY ==
--- NOTE | 2024-12-16 16:06 | AM.OFFWIN_ITS ---
Intake Vital Signs 12/16/24 16:07 Weight 179 lb BP 114/70 Blood Pressure Location Rt brachial Position Sitting Pulse 64 Pulse Source Pulse Oximeter Temp 98.0 F Temp Source Oral Pulse Oximetry (%) 98 Oxygen Delivery Method Room Air Intake Visit Reasons: EP Ear pain, muffled sound Intake Note: Patient here for right ear pain, sounds like its echoing that has been present for about 1 week now. Patient Tobacco Use Status: Former Tobacco user Allergies No Known Allergies Allergy (Verified 12/16/24 16:08) Do you need a note to return to daycare/school/sports/work: Yes HPI HPI Comments History of Present Illness Details History - The patient is a 44-year-old female pr esenting with sharp ear pain and muffled hearing in the right ear. - Symptoms initiated approximately one w [place] prior with initial sharp pain, evolving into muffled hearing perceived as talking through a tube. - The patient noted a self-resolving low -grade fever over the weekend. - She reports mild sensitivity when the right ear is palpated. - Denies cough, nasal congestion, or sin us pressure symptoms but has a history of recurrent ear infections during adolescence. - Current symptom management includes th e use of Motrin, which has provided some relief. Physical Exam General: Cooperative, healthy appearing, comfortable and no acute distress Orientation/consciousness: Patient oriented x3 Limitations: No limitations Head: Normal to inspection Ears: Hearing grossly normal bilaterally, external ears normal. EAC slight erythema, no edema. Right TM with fluid, no erythema, no bulging, or other signs of infection, left TM normal Nose: Normal external nose present, Normal nares present and No nasal discharge present Face and sinus: Normal facial exam Mouth: Normal oral and palatal mucosa present and moist mucous membranes Throat: Yes tonsils normal, Yes uvula midline. Posterior oropharynx erythema Eyes: Appearance normal, both eyes and all related structures Neck: Normal visual inspection Respiratory: Normal respiratory effort, able to speak in complete sentences, no respiratory distress, not tachypneic, no tripod positioning and no use of accessory muscles Skin: No rashes or lesions noted Neuro: Patient oriented x3 Extremities: Normal to inspection and Yes no clubbing, cyanosis or edema [facility] Medical History Epidermal cyst Multinodular thyroid Nipple pain Mastalgia Annual physical exam Anxiety Depression Surgical History History of removal of cyst (~06/06/24) Status post excision of lipoma (~02/02/23) Hx of thumb surgery Hx of dilation and curettage Family History Father Glaucoma Mother Glaucoma Maternal Aunt Breast cancer Lung cancer Cervical cancer Maternal Aunt Breast cancer Paternal Aunt Breast cancer Social History Household Members Other:: 2 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 (5, 12), 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, 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 Tobacco Use Status: Former Tobacco user Tobacco use type: Cigarette Years Smoked: 20 plus e-Cigarette/Vaping Use: Currently Using service: No Current occupational status: employed Cognitive needs: No Hearing needs: No Vision needs: Yes Review of Systems Const All systems reviewed & are unremarkable except as noted in HPI and below Physical Exam Vital Signs: Last Vital Signs Temp 98.0 F 12/16/24 16:07 Pulse 64 12/16/24 16:07 BP 114/70 12/16/24 16:07 Pulse Ox 98 12/16/24 16:07 Oxygen Delivery Method Room Air 12/16/24 16:07 Assessment & Plan Assessment & Plan (1) Acute effusion of right ear: Code(s): H65.191 - Other acute nonsuppurative otitis media, right ear Plan: To address the patient's episodic otalgia and potential eustachian tube dysfunction, I will prescribe Fluticasone Flonase nasal spray, with explicit instruction on its proper use to relieve nasal congestion and promote improved clearance of ear fluid. An oral course of Prednisone will be provided to reduce fluid accumulation and diminish the muffled hearing sensation. Additionally, Benadryl is recommended at night to facilitate fluid drainage and improve rest. The patient is informed to return for evaluation if symptoms progress despite the outlined treatments. Patient was informed and verbally consented to the use of an ambient scribe for clinic note documentation during this visit Medications: New fluticasone propionate 50 mcg/actuation administer into each nostril 1 spray intranasal Q12H 16 grams 0RF prednisone 10 mg PO QAM 5 tabs 0RF Coding Level of Care Code Est Pt Level 3 (39304) Diagnoses Acute effusion of right ear H65.191
[2024-12-16 16:07] VITALS: BP 114/70; PULSE 64; TEMP 36.7; O2SAT 98
--- OUTSIDE RECORDS SUMMARY | 2024-12-16 17:52 | XMS_ITS | Clinical Summary ---
Author Organization [email or web address] [facility] it Address [address] [place] [address] Care Team Providers Care Web Weaver Name Role Phone Yudith Paez MD Primary Care Provider [phone] Surgical History Surgery Date Site/Laterality Comments OTHER SURGICAL HISTORY PROCEDURE: [place] OPEN [place] CARPOMETACARPAL FRACTURE DISLOCATE THUMB OTHER SURGICAL HISTORY 12/2015 PROCEDURE: [place] DILATION & CURETTAGE DX&/THER NONOBSTETRIC; COMMENT: by Dr Doty, for miscarriage Medical History Medical History Date Comments Abnormal Pap smear of cervix DX: Abnormal Pap smear of cervix Herpes simplex DX:Herpes simple x; COMMENT: genital herpes Substance abuse (CMS/HCC) DX:Sub stance abuse ([facility] COMMENT: clean 14 years (cocaine-states it was hard and soft) and was into drinking alcohol as well Glaucoma DX:Glaucoma; COM MENT: beginning stages Depression DX:Depression; C OMMENT: taking prozac 20mg and wellbutrin 150mg daily Family History Medical History Relation Name Comments Breast cancer Aunt 1 maternal Cervical cancer Aunt 2 Asthma Brother 1 Other: bronchitis Brother 1 No Known Problems Brother 2 Glaucoma Father Other: hep c Father no viral load a nymore, still a carrier Other: pre-diabetic Father Other: substance abuse hx Father in recovery Depression Father's side fathers side a nd mothers side COPD Maternal Grandfather Diabetes Maternal Grandmother Other: heart issues Maternal Grandmother unsure what Arthritis Mother ?fibro Bipolar disorder Mother Other: hysterectomy Mother Other: substance abuse hx Mother in recovery Other: substance abuse Other both sides of family Asthma Paternal Grandfather Diabetes Paternal Grandfather Other: smoker Paternal Grandfather also m ultiple lung operations-states he had only one lung Hyperlipidemia Paternal Grandmother also took a water pill Other: addiction Sister still activ e-off and on Other: spina bifida Sister states p t and her siblings were all tested for it when small Other: small cell cancer Uncle pat ernal uncle Colon cancer Neg Hx Ovarian cancer Neg Hx Prostate cancer Neg Hx Uterine cancer Neg Hx Relation Name Status Comments Aunt 1 Alive Aunt 2 Brother 1 Alive Brother 2 Alive Father Alive Father's side Maternal Grandfather Maternal Grandmother Mother Alive Other Paternal Grandfather Paternal Grandmother Sister Alive Uncle Social History Tobacco Use Types Packs/Day Years Used Date Smoking Tobacco: Former Smokeless Tobacco: Never Alcohol Use Standard Drinks/Week Comments No 0 (1 standard drink = 0.6 oz pur e alcohol) Comments Unknown Sex and Gender Information Value Date Recorded Sex Assigned at Not on file Legal Sex Female 10:06 AM EST Gender Identity Not on file Sexual Orientation Not on file Obstetrics History Plan of Treatment Health Maintenance Due Date Last Done Comments Breast Cancer Screening 1981 Hepatitis B Vaccines (1 of 3 - 19+ 3-dose series) 2000 Cervical Cancer Screening: P ap Smear 2002 Depression Screening 12/04/2022 HIV Screening 12/04/2022 Hepatitis C Screening 12/04/2022 Social Influencers of Health Screening 12/04/2022 COVID-19 Vaccine (1 - 2023-2 5 season) 2024 Influenza Vaccine (#1) 2024 DTaP,Tdap,and Td Vaccines (2 - Td or Tdap) 08/24/2027 08/24/2017 HIB Vaccines Aged Out No longer eligi ble based on patient's age to complete this topic HPV Vaccines Aged Out No longer eligi ble based on patient's age to complete this topic Hepatitis A Vaccines Aged Out No long er eligible based on patient's age to complete this topic IPV Vaccines Aged Out No longer eligi ble based on patient's age to complete this topic MMR Vaccines Aged Out No longer eligi ble based on patient's age to complete this topic Meningococcal ACWY Vaccine Aged Out N o longer eligible based on patient's age to complete this topic Meningococcal B Vacine Aged Out No lo nger eligible based on patient's age to complete this topic Pneumococcal Vaccine: Pediat rics (0 to 5 Years) and At-Risk Patients (6 to 64 Years) Aged Out No longer eligi ble based on patient's age to complete this topic RSV Immunization Patients Un amelia 20 months Aged Out No longer eligible b ased on patient's age to complete this topic Varicella Vaccines Aged Out No longer eligible based on patient's age to complete this topic Care Teams Web Weaver Relationship Specialty Start Date End Date Yudith Paez MD PCP - General Internal Medicine 09/18/18
== END 2024-12-16 16:54 | disposition home or self-care (01) ==
PROVIDERS: PCP Internal Medicine; Visit Provider Physician Assistant
DX: H65.191 Other acute nonsuppurative otitis media, right ear (principal)

== ENCOUNTER → 2024-12-16 15:56 | Outpatient (BNVA) | payer OTHER, SELFPAY | PROVIDERS: PCP Internal Medicine ==

== ENCOUNTER 2025-01-21 13:03 | Outpatient (AMB) | payer OTHER, SELFPAY ==
[2025-01-21 13:12] VITALS: BP 104/62; PULSE 92; RESP 18; TEMP 36.8; O2SAT 99; BMI 31.0
--- NOTE | 2025-01-21 13:12 | MHC.PC.OV ---
Vital Signs 01/21/25 13:12 Height 5 ft 3 in Weight 175 lb BMI 31.0 BP 104/62 Blood Pressure Location Rt brachial Position Sitting Respiration 18 Pulse 92 Pulse Source Pulse Oximeter Temp 98.3 F Temp Source Oral Pulse Oximetry (%) 99 Oxygen Delivery Method Room Air Intake Visit Reasons: Annual PE Intake Note: Pt is here today for PE. Allergies No Known Allergies Allergy (Verified 01/21/25 13:18) Medication List - Last Reconciled 01/21/25 by Yudith Paez MD bupropion HCl XL 300 mg PO QAM fluticasone propionate 50 mcg/actuation 1 spray intranasal Q12H Tobacco use date assessed: 01/21/25 Dental Screening Dental Screen Date: 01/21/25 Did you have a dental visit in the last 12 months?: Yes Did you have a dental problem in the last 6 months where you did not have access to dental care?: No Was dental information given to patient?: Patient has dentist HPI Annual PE HPI Details Pt presents for PE. Pt reports new onset headaches getting more severe with 9/10 and more frequent up to 3 x a week in R frontal region for the last 2 months. Patient reports occasionally light sensitivity and nausea but no vomiting associated with the headaches. Patient reports headaches feel like pressure becoming more stabbing when and highest intensity. She has been occasionally waking up with a headaches. Patient has been taking 600 mg of ibuprofen up to 3 times a day at least 3 days a week with partial relief of the headache. Patient denies any change in the vision, weakness ,numbness in extremities change in balance. Patient reports getting more hot flashes at least 4 times a month usually in the mornings. Her menses are regular and unchanged for the last 6 months. 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 1. Little interest or pleasure in doing things: several days 2. Feeling down, depressed, or hopeless: several days 3. Trouble falling or staying asleep, or sleeping too much: more than half the days 4. Feeling tired or having little energy: several days 5. Poor appetite or overeating: not at all 6. Feeling bad about yourself - or that you are a failure or have let yourself or your family down: more than half the days 7. Trouble concentrating on things, such as reading the newspaper or watching television: several days 8. Moving or speaking so slowly that other people could have noticed. Or the opposite - being so fidgety or restless that you have been moving around a lot more than usual: not at all 9. Thoughts that you would be better off or of hurting yourself in some way: not at all Total score: 8 Depression Screening Interpretation: Negative Depression Screening Done: Yes 94351 - PHQ-9 Billing: Yes Source: Developed by Drs. Raymundo Weinstein, Estrella Danielle, Denzel Fong and colleagues, with an educational monisha from [employer]. Thrive Questionnaire Date Thrive assessed: 01/21/25 I am a: Patient What is your living situation today?: I have a steady place to live Within the past 12 months, did the food you bought not last and you didn't have the money to get more?: Never true Within the past 12 months, did you worry whether your food would run out before you got money to buy more?: Never true Do you have trouble paying for medicines?: No Do you have trouble getting transportation to medical appointments?: No Do you have trouble paying your heating and electricity bill?: No Do you have trouble taking care of your child, family member or friend?: No Do you have trouble with day-to-day activities such as bathing, preparing meals, shopping, managing finances, etc.?: No Are you currently unemployed and looking for a job?: No Are you interested in more education?: No Please select the resources that you would like help with: None THRIVE Score: 0 AUDIT C Alcohol Use Questionnaire (AUDIT-C) 1. How often do you have a drink containing alcohol?: Never 3. How often do you have six or more drinks on one occasion?: Never Total Score: 0 ANANDA-7 AMB Questionnaire ANANDA-7 Date ANANDA - 7 assessed: 01/21/25 Feeling nervous, anxious, or on edge: 0 = Not at all Not being able to stop or control worryin = Not at all Worrying too much about different things: 0 = Not at all Trouble relaxin = Not at all Being so restless that it is hard to sit still: 0 = Not at all Becoming easily annoyed or irritable: 0 = Not at all Feeling afraid as if something awful might happen: 0 = Not at all Total ANANDA-7 score (0-4 normal; 5-9 mild; 10-14 moderate; 15-21 severe): 0 Source: Developed by Drs. Raymundo Weinstein, Estrella Danielle, Denzel Fong and colleagues, with an educational monisha from [employer]. ANANDA-7 Assessment Billing ANANDA-7 Assessment Tool: ANANDA-7 Assessment 03365 Review of Systems Const All systems reviewed & are unremarkable except as noted in HPI and below Reports no additional complaints Eyes Reports no additional complaints ENT Reports no additional complaints Card Reports no additional complaints Resp Reports no additional complaints GI Reports no additional complaints Reports no additional complaints Musc Reports no additional complaints Physical exam (Primary Care) Vital Signs: Last Vital Signs Temp 98.3 F 01/21/25 13:12 Pulse 92 01/21/25 13:12 Resp 18 01/21/25 13:12 BP 104/62 01/21/25 13:12 Pulse Ox 99 01/21/25 13:12 Oxygen Delivery Method Room Air 01/21/25 13:12 BMI result Body Mass Index 31.0 Tobacco/Smoking Status: Tobacco use Status Tobacco use date assessed 01/21/25 01/21/25 13:23 Patient Tobacco Use Status Former Tobacco user 01/21/25 13:12 Tobacco use type Cigarette 01/21/25 13:12 e-Cigarette/Vaping Use Never Used 01/21/25 13:23 PHQ-9: PHQ-9 Score PHQ-9: Total score 8 01/21/25 13:35 Depression Screening Interpretation: Negative Thrive Assessment: Date of Thrive Assessment Date Thrive assessed 01/21/25 01/21/25 13:23 Const General: no acute distress HENMT Head: Yes normal to inspection General nose exam: Normal external nose present Face and sinus: Yes normal facial exam Mouth: Normal oral and palatal mucosa present Eyes General: appearance normal, both eyes and all related structures Neck Neck: Yes no lymphadenopathy and Yes supple Resp Effort & Inspection: normal respiratory effort Auscultation: clear to auscultation bilaterally Cardio Rhythm: regular rhythm Heart sounds: S1 normal heart sound present and S2 normal heart sound present GI Inspection: Yes normal to inspection Palpation (GI): Soft to palpation Percussion: Yes normal to percussion Auscultation: normal bowel sounds Neuro Cranial nerves: Yes CN's II-XII intact bilaterally Gait exam (Neuro): Normal gait present Motor exam (neuro): 5/5 motor strength present throughout Romberg Test: Negative Coding Level of Care Code Est Pt Prev Care 40-64y(77441) Diagnoses Annual physical exam Z00.00 Multinodular thyroid E04.2 New onset headache R51.9 Additional Codes ANANDA-7 Assessment Billing - ANANDA-7 Assessment Tool: ANANDA-7 Assessment 69931 ([id number]) PHQ-9 - 08816 - PHQ-9 Billing: Yes ([id number]) Assessment & Plan Assessment & Plan (1) Annual physical exam: Code(s): Z00.00 - Encounter for general adult medical examination without abnormal findings Category: Medical Plan: Well-balanced diet regular physical activity discussed with the patient she will return for fasting blood work. Patient is up-to-date with the Pap smear by cleaner greaser (2) Multinodular thyroid: Comment: 2 nodules bx negative 02/28, f/u C endo, patient needs annual thyroid ultrasound to monitor Code(s): E04.2 - Nontoxic multinodular goiter Category: Medical Plan: Obtain annual thyroid ultrasound to monitor multinodular goiter (3) New onset headache: Code(s): R51.9 - Headache, unspecified Category: Medical Plan: For new onset of headaches obtain CT of the brain and trial of Imitrex. Patient will follow-up in 1month. She was advised to record the frequency intensity of her headaches Orders: Orders Comprehensive [place]. Panel Fast Today E04.1 - Nontoxic single thyroid nodule, E04.9 - Nontoxic goiter, unspecified, F32.9 - Major depressive disorder, single episode, unspecified, Z00.00 - Encounter for general adult medical examination without abnormal findings Complete Blood Count Auto Diff Today E04.1 - Nontoxic single thyroid nodule, E04.9 - Nontoxic goiter, unspecified, F32.9 - Major depressive disorder, single episode, unspecified, Z00.00 - Encounter for general adult medical examination without abnormal findings Lipid Panel Today E04.1 - Nontoxic single thyroid nodule, E04.9 - Nontoxic goiter, unspecified, F32.9 - Major depressive disorder, single episode, unspecified, Z00.00 - Encounter for general adult medical examination without abnormal findings Follicle Stimulating Hormone Today E04.1 - Nontoxic single thyroid nodule, E04.9 - Nontoxic goiter, unspecified, F32.9 - Major depressive disorder, single episode, unspecified, Z00.00 - Encounter for general adult medical examination without abnormal findings UA w Microscopic Today E04.1 - Nontoxic single thyroid nodule, E04.9 - Nontoxic goiter, unspecified, F32.9 - Major depressive disorder, single episode, unspecified, Z00.00 - Encounter for general adult medical examination without abnormal findings TSH reflex Free T4 Today E04.1 - Nontoxic single thyroid nodule, E04.9 - Nontoxic goiter, unspecified, F32.9 - Major depressive disorder, single episode, unspecified, Z00.00 - Encounter for general adult medical examination without abnormal findings CT head/brain wo IV con Today R51.9 - Headache, unspecified US thyroid Today E04.2 - Nontoxic multinodular goiter Medications: New sumatriptan succinate (Imitrex) take 1 tab at onset of headache; if no relief may repeat 1 tab after at least 2 hrs; max = 4 tabs/24 hr PO 10 tabs 1RF
--- OUTSIDE RECORDS SUMMARY | 2025-01-21 15:57 | XMS_ITS | Clinical Summary ---
Author Organization [facility] it Address [address] [place] [address] Care Team Providers Care Carpenter Assistant Installer Name Role Phone Yudith Paez MD Primary Care Provider [phone] Surgical History Surgery Date Site/Laterality Comments OTHER SURGICAL HISTORY PROCEDURE: [place] OPEN TX CARPOMETACARPAL FRACTURE DISLOCATE THUMB OTHER SURGICAL HISTORY 12/2015 PROCEDURE: [place] DILATION & CURETTAGE DX&/THER NONOBSTETRIC; COMMENT: by Dr Doty, for miscarriage Medical History Medical History Date Comments Abnormal Pap smear of cervix DX: Abnormal Pap smear of cervix Herpes simplex DX:Herpes simple x; COMMENT: genital herpes Substance abuse (CMS/[facility] V24 , CMS/[facility] V28) DX:Substance abuse (HCC); CO MMENT: clean 14 years (cocaine-states it was hard [...] Influencers of Health Screening 12/04/2022 COVID-19 Vaccine (2023-2 5 season) 2024 Influenza Vaccine (Season Ended) 2025 DTaP,Tdap,and Td Vaccines (2 - Td or [...] age to complete this topic Meningococcal B Vaccine Aged Out No l onger eligible based on patient's age to complete [...] age to complete this topic Care Teams Carpenter Assistant Installer Relationship Specialty Start Date End Date Yudith Paez MD PCP - General Internal Medicine 09/18/18
== END 2025-01-21 13:56 | disposition home or self-care (01) ==
LOC: HO.HMCC 13:03
PROVIDERS: PCP Internal Medicine; Visit Provider Internal Medicine
DX: Z00.00 Encounter for general adult medical examination without abnormal findings (principal); E04.2 Nontoxic multinodular goiter; R51.9 Headache, unspecified

== ENCOUNTER → 2025-01-21 13:03 | Outpatient (BNVA) | payer OTHER, SELFPAY | PROVIDERS: PCP Internal Medicine; Visit Provider Internal Medicine | DX: Z00.00 Encounter for general adult medical examination without abnormal findings (principal); E04.2 Nontoxic multinodular goiter; R51.9 Headache, unspecified | CPT/HCPCS: 96127 ==

== ENCOUNTER 2025-02-05 14:51 | Outpatient (REF) | payer OTHER, SELFPAY ==
--- NOTE | ~2025-02-05 | CT_ITS ---
EXAMINATION: CT HEAD WITHOUT CONTRAST CLINICAL INFORMATION: Headache, unspecified. COMPARISON: None available. TECHNIQUE: Contiguous axial imaging was performed from the skull base to vertex without intravenous administration of contrast. This CT examination was performed using dose optimization techniques as appropriate, variously including the following: *Automated exposure control *Adjustment of mA and/or kV according to patient size (this includes techniques or standardized protocols for targeted exams where dose is matched to indication/reason for exam; i.e. extremities or head) *Use of iterative reconstruction technique FINDINGS: There is no evidence of intracranial hemorrhage or extra-axial fluid collection. There is no mass effect, or edema. No CT evidence of acute territorial infarct. Ventricles, sulci, and cisterns are normal in size and configuration for patient age. No hydrocephalus. No midline shift. Negative hyperdense MCA sign. Negative insular ribbon sign. No significant white matter abnormality. Normal pituitary. Globes and orbital contents image normally. No extracranial soft tissue abnormalities. The paranasal sinuses, mastoid air cells, and tympanic cavities are normally aerated. No suspicious bony abnormalities. There are no acute fractures evident. CT/CT head/brain wo IV con IMPRESSION: No acute intracranial abnormality. Normal examination. Electronically signed by: Hilario Rosario MD 02/05/2025 03:42 PM EDT
--- OUTSIDE RECORDS SUMMARY | 2025-02-05 15:59 | XMS_ITS | Clinical Summary ---
Author Organization [facility] it Address [address] [place] [address] Care Team Providers Care Foxer Name Role Phone Yudith Paez MD Primary Care Provider [phone] Surgical History Surgery Date Site/Laterality Comments OTHER SURGICAL HISTORY PROCEDURE: [place] OPEN [place] CARPOMETACARPAL FRACTURE DISLOCATE THUMB OTHER SURGICAL HISTORY 12/2015 PROCEDURE: [place] DILATION & CURETTAGE DX&/THER NONOBSTETRIC; COMMENT: by Dr Doty, for miscarriage Medical History Medical History Date Comments Abnormal Pap smear of cervix DX: Abnormal Pap smear of cervix Herpes simplex DX:Herpes simple x; COMMENT: genital herpes Substance abuse (CMS/[facility] V24 , CMS/[facility] V28) DX:Substance abuse (HCC); CO MMENT: clean [...] age to complete this topic Care Teams Foxer Relationship Specialty Start Date End Date Yudith Paez MD PCP - General Internal Medicine 09/18/18
== END 2025-02-05 14:52 | disposition home or self-care (01) ==
LOC: HO.CT 14:51
PROVIDERS: PCP Internal Medicine; Visit Provider Internal Medicine
DX: R51.9 Headache, unspecified (principal)
CPT/HCPCS: 70450

== ENCOUNTER → 2025-02-05 14:52 | Outpatient (BNV) | payer OTHER, SELFPAY | PROVIDERS: PCP Internal Medicine; Visit Provider Radiology Diagnostic Radiology | DX: R51.9 Headache, unspecified (principal) | CPT/HCPCS: 70450 ==

== ENCOUNTER 2025-02-17 07:59 | Outpatient (REF) | payer OTHER, SELFPAY ==
--- NOTE | ~2025-02-17 | US_ITS ---
EXAMINATION: US THYROID HISTORY: E04.2 - Nontoxic multinodular goiter TECHNIQUE: Real-time grayscale ultrasound imaging was performed and images were reviewed. COMPARISON: Comparison is made with the prior examination dated 01/16/2024. FINDINGS: SIZE: The right thyroid lobe measures 5.6 x 1.7 x 1.8 cm. The left thyroid lobe measures 4.0 x 1.2 x 1.8 cm. The isthmus measures 3 mm. FLOW: Flow to the gland is hypervascular. ECHOGENICITY: The echotexture of the gland is heterogeneous. NODULES: Multiple right sided nodules are again noted as described below: Nodule #: 1 Location: Right lower pole measuring 11 x 7 x 10 mm (previously 11 x 8 x 9 mm). Shape: Wider than tall (0 points) Margins: Smooth (0 points) Echotexture: Hypoechoic (2 points) Composition: Solid (2 points) Calcifications: Punctate calcifications (3 points) Total points: 7 TIRADS: TR5: Highly suspicious. Nodule #: 2 Location: Right lower pole measuring 14 x 7 x 12 mm (previously 13 x 6 x 13 mm). Shape: Wider than tall (0 points) Margins: Smooth (0 points) Echotexture: Hyperechoic (1 point) Composition: Mostly solid (2 points) Calcifications: None (0 points) Total points: 3 TIRADS: TR3: Mildly suspicious. Nodule #: 3 Location: Lower pole of the right thyroid lobe measuring 14 x 8 x 12 mm (not present previously). Shape: Wider than tall (0 points) Margins: Smooth (0 points) Echotexture: Hypoechoic (2 points) Composition: Mostly solid (2 points) Calcifications: Macrocalcifications (1 point) Total points: 5 TIRADS: TR4: Moderately suspicious. Nodule #: 4 Location: Right lower pole measuring 8 x 5 x 11 mm (previously 9 x 7 x 11 mm). Shape: Wider than tall (0 points) Margins: Smooth (0 points) Echotexture: Hypoechoic (2 points) Composition: Solid (2 points) Calcifications: None (0 points) Total points: 4 TIRADS: TR4: Moderately suspicious. US/US thyroid IMPRESSION: The previously seen three right-sided thyroid nodules are stable. However, there is a new 14 x 8 x 12 mm nodule at the lower pole of the right thyroid lobe (nodule #3 above) which is moderately suspicious. According to ACR TI-RADS guidelines below, ultrasound-guided fine-needle aspiration is recommended. ACR TI-RADS Guidelines TR1 (0 points): Benign, No follow-up or biopsy required TR2 (2 points): Not Suspicious, No biopsy or follow up indicated TR3 (3 points): Mildly Suspicious, FNA if >= 2.5 cm, Follow if >= 1.5 cm TR4 (4-6 points): Moderately Suspicious, FNA if >= 1.5 cm, Follow if >= 1.0 cm TR5 (>=7 points): Highly Suspicious, FNA if >= 1.0 cm, Follow if >= 0.5 cm Electronically signed by: Raymundo Joshua MD 02/17/2025 10:53 AM EDT
--- OUTSIDE RECORDS SUMMARY | 2025-02-17 08:00 | XMS_ITS | Clinical Summary ---
Author Organization [facility] [employer] [facility] it Address [address] [place] [address] Care Team Providers Care Gourmet Coffee Attendant Name Role Phone Yudith Paez MD Primary Care Provider [phone] Surgical History Surgery Date Site/Laterality Comments OTHER SURGICAL HISTORY PROCEDURE: [place] OPEN [place] CARPOMETACARPAL FRACTURE DISLOCATE THUMB OTHER SURGICAL HISTORY 12/2015 PROCEDURE: [facility] DILATION & CURETTAGE DX&/THER NONOBSTETRIC; COMMENT: by Dr Doty, for miscarriage Medical History Medical History Date Comments Abnormal Pap smear of cervix DX: Abnormal Pap smear of cervix Herpes simplex DX:Herpes simple x; COMMENT: genital herpes Substance abuse (CMS/[facility] V24 , CMS/[facility] V28) DX:Substance abuse (HCC); CO MMENT: clean [...] complete this topic RSV Immunization Patients Un amleia 20 months Aged Out No longer eligible b ased on patient's age to complete this topic Varicella Vaccines Aged Out No longer eligible based on patient's age to complete this topic Care Teams Gourmet Coffee Attendant Relationship Specialty Start Date End Date Yudith Paez MD PCP - General Internal Medicine 09/18/18
[2025-02-17 10:05] LABS: Appearance Urine Clear; Color Urine Yellow; Glucose Urine UA Negative (Negative); Leukocyte Esterase Urine Trace (Negative); Nitrite Urine Negative (Negative); UMIC TRIGGER UA YES; Urine Blood Negative (Negative); Urine Ketones Negative (Negative); Urine Protein Negative (Neg-Trace)
[2025-02-17 10:08] LABS: Bacteria Urine 1+ (None Seen); Hyaline Casts Urine 0-2 /LPF (0-2); RBC Urine 0-2 /HPF (0-2); Squamous Epithelial Cell Urine 0-2 /HPF (0-2); WBC Urine 0-5 /HPF (0-5)
[2025-02-17 10:12] LABS: MANUAL DIFF FLAG NO
[2025-02-17 10:18] LABS: Basophils Percent Auto 0.6 % (0-2); Eosinophils Absolute Auto 0.1 X10*3/uL (0.0-0.4); Eosinophils Percent Auto 1.3 % (0-4); Hematocrit 39.8 % (37.0-47.0); Hemoglobin 13.3 g/dl (12.0-16.0); Imm Gran Abs Auto 0.01 X10*3/uL (0.00-0.03); Imm Gran Pct Auto 0.2 % (0.0-0.4); Lymphocytes Absolute Auto 1.4 X10*3/uL (1.2-4.9); Lymphocytes Percent Auto 27.2 % (20-40); Mean Corpuscular HGB Conc 33.4 g/dl (31.0-35.0); Mean Corpuscular Hemoglobin 29.1 pg (27.0-33.0); Mean Corpuscular Volume 87.1 fL (80.0-98.0); Monocytes Absolute Auto 0.3 X10*3/uL (0.1-1.2); Monocytes Percent Auto 6.4 % (2-11); Neutrophils Absolute Auto 3.3 x10*3/uL (2.0-8.3); Neutrophils Percent Auto 64.3 % (45-73); Platelet Count 274 X10*3/uL (160-400); Red Blood Count 4.57 X10*6/uL (4.20-5.50); Red Cell Distribution Width 12.8 % (11.0-16.0); White Blood Count 5.2 X10*3/uL (4.8-10.8)
[2025-02-17 10:48] LABS: Alanine Aminotransferase 20 U/L (0-31); Albumin Level 3.9 g/dL (3.5-5.0); Alkaline Phosphatase 33 U/L (39-117); Anion Gap 10 (12-20); Aspartate Amino Transferase 25 U/L (5-31); Bilirubin Total 0.3 mg/dL (0.0-1.0); Blood Urea Nitrogen 14 mg/dL (9-16); Calcium 8.8 mg/dL (8.4-10.2); Carbon Dioxide 25 mmol/L (22-29); Chloride 108 mmol/L (96-108); Cholesterol 150 mg/dL (<200); Estimated Glomerular Filt Rate > 60; Glucose Fasting 90 mg/dL (60-99); HDL Cholesterol 50 mg/dL (>40); LDL Cholesterol Calculated 90 mg/dL (<100); Potassium 4.1 mmol/L (3.3-5.1); Sodium 139 mmol/L (135-145); Total Protein 6.5 g/dL (6.5-8.0); Triglycerides 53 mg/dL (<150)
[2025-02-17 11:03] LABS: TSH reflex Free T4 1.48 uIU/mL (0.32-4.0)
== END 2025-02-17 08:00 | disposition home or self-care (01) ==
LOC: HO.HMGCX 07:59
PROVIDERS: PCP Internal Medicine; Visit Provider Internal Medicine
DX: E04.1 Nontoxic single thyroid nodule (principal); F32.9 Major depressive disorder, single episode, unspecified; E04.2 Nontoxic multinodular goiter; Z13.6 Encounter for screening for cardiovascular disorders; Z00.00 Encounter for general adult medical examination without abnormal findings
CPT/HCPCS: 36415; 76536; 80053; 80061; 81001; 83001; 84443; 85025

== ENCOUNTER → 2025-02-17 08:18 | Outpatient (BNV) | payer OTHER, SELFPAY | PROVIDERS: PCP Internal Medicine; Visit Provider Radiology Diagnostic Radiology | DX: E04.2 Nontoxic multinodular goiter (principal) | CPT/HCPCS: 76536 ==

== ENCOUNTER 2025-03-05 11:46 | Outpatient (AMB) | payer OTHER, SELFPAY ==
[2025-03-05 11:48] VITALS: BP 110/72; PULSE 72; RESP 18; TEMP 37.1; O2SAT 99; BMI 31.2
--- NOTE | 2025-03-05 11:48 | A.OFFPC_ITS ---
Vital Signs 03/05/25 11:48 Height 5 ft 3 in Weight 176 lb BMI 31.2 BP 110/72 Blood Pressure Location Rt brachial Position Sitting Respiration 18 Pulse 72 Pulse Source Pulse Oximeter Temp 98.7 F Temp Source Oral Pulse Oximetry (%) 99 Oxygen Delivery Method Room Air Intake Visit Reasons: 1 month follow up Intake Note: Pt is here today for 1 month follow up visit. Allergies No Known Allergies Allergy (Verified 03/05/25 11:58) Medication List - Last Reconciled 03/05/25 by Yudith Paez MD bupropion HCl XL 300 mg PO QAM fluticasone propionate 50 mcg/actuation 1 spray intranasal Q12H sumatriptan succinate (Imitrex) take 1 tab at onset of headache; if no relief may repeat 1 tab after at least 2 hrs; max = 4 tabs/24 hr PO Tobacco use date assessed: 01/21/25 Dental Screening Dental Screen Date: 01/21/25 HPI 1 month follow up HPI Details Patient presents for the follow-up of new onset headaches. Her headaches improved significantly and patient did not try Imitrex. She had a follow-up thyroid ultrasound which showed a new thyroid nodule and she has an appointment scheduled with [facility] [employer] next month. 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 1. Little interest or pleasure in doing things: several days 2. Feeling down, depressed, or hopeless: several days 3. Trouble falling or staying asleep, or sleeping too much: several days 4. Feeling tired or having little energy: several days 5. Poor appetite or overeating: several days 6. Feeling bad about yourself - or that you are a failure or have let yourself or your family down: several days 7. Trouble concentrating on things, such as reading the newspaper or watching television: several days 8. Moving or speaking so slowly that other people could have noticed. Or the opposite - being so fidgety or restless that you have been moving around a lot more than usual: several days 9. Thoughts that you would be better off or of hurting yourself in some way: not at all Total score: 8 Depression Screening Interpretation: Negative Depression Screening Done: Yes 84723 - PHQ-9 Billing: Yes Source: Developed by Drs. Raymundo Weinstein, Estrella Danielle, Denzel Fong and colleagues, with an educational monisha from [employer]. Thrive Questionnaire Date Thrive assessed: 03/05/25 I am a: Patient What is your living situation today?: I have a steady place to live Within the past 12 months, did the food you bought not last and you didn't have the money to get more?: Never true Within the past 12 months, did you worry whether your food would run out before you got money to buy more?: Never true Do you have trouble paying for medicines?: No Do you have trouble getting transportation to medical appointments?: No Do you have trouble paying your heating and electricity bill?: No Do you have trouble taking care of your child, family member or friend?: No Do you have trouble with day-to-day activities such as bathing, preparing meals, shopping, managing finances, etc.?: No Are you currently unemployed and looking for a job?: No Are you interested in more education?: No Please select the resources that you would like help with: None Currently or been in a relationship where the following occur: No concerns reported THRIVE Score: 0 AUDIT C Alcohol Use Questionnaire (AUDIT-C) 1. How often do you have a drink containing alcohol?: Never Total Score: 0 ANANDA-7 AMB Questionnaire ANANDA-7 Date ANANDA - 7 assessed: 03/05/25 Feeling nervous, anxious, or on edge: 3 = Nearly every day Not being able to stop or control worryin = Nearly every day Worrying too much about different things: 3 = Nearly every day Trouble relaxin = Nearly every day Being so restless that it is hard to sit still: 3 = Nearly every day Becoming easily annoyed or irritable: 3 = Nearly every day Feeling afraid as if something awful might happen: 3 = Nearly every day Total ANANDA-7 score (0-4 normal; 5-9 mild; 10-14 moderate; 15-21 severe): 21 Source: Developed by Drs. Raymundo Weinstein, Estrella Danielle, Denzel Fong and colleagues, with an educational monisha from [employer]. ANANDA-7 Assessment Billing ANANDA-7 Assessment Tool: ANANDA-7 Assessment 72110 Review of Systems Const All systems reviewed & are unremarkable except as noted in HPI and below Eyes Reports no additional complaints ENT Reports no additional complaints Card Reports no additional complaints Resp Reports no additional complaints GI Reports no additional complaints Reports no additional complaints Physical exam (Primary Care) Vital Signs: Last Vital Signs Temp 98.7 F 03/05/25 11:48 Pulse 72 03/05/25 11:48 Resp 18 03/05/25 11:48 BP 110/72 03/05/25 11:48 Pulse Ox 99 03/05/25 11:48 Oxygen Delivery Method Room Air 03/05/25 11:48 BMI result Body Mass Index 31.2 Tobacco/Smoking Status: Tobacco use Status Tobacco use date assessed 01/21/25 03/05/25 11:48 Patient Tobacco Use Status Former Tobacco user 03/05/25 11:48 Tobacco use type Cigarette 03/05/25 11:48 e-Cigarette/Vaping Use Never Used 03/05/25 11:48 PHQ-9: PHQ-9 Score PHQ-9: Total score 8 03/05/25 12:43 Depression Screening Interpretation: Negative Thrive Assessment: Date of Thrive Assessment Date Thrive assessed 03/05/25 03/05/25 12:05 Currently or been in a relationship where the following occur: No concerns reported Const General: no acute distress HENMT Head: Yes normal to inspection Neck Neck: Yes no lymphadenopathy and Yes supple Thyroid: diffusely enlarged Resp Effort & Inspection: normal respiratory effort Auscultation: clear to auscultation bilaterally Cardio Rhythm: regular rhythm Heart sounds: S1 normal heart sound present and S2 normal heart sound present Coding Level of Care Code Est Pt Level 4 (88374) Diagnoses Multinodular thyroid E04.2 Depression F32.9 Headache R51.9 Additional Codes ANANDA-7 Assessment Billing - ANANDA-7 Assessment Tool: ANANDA-7 Assessment 15735 ([id number]) PHQ-9 - 12713 - PHQ-9 Billing: Yes ([id number]) Assessment & Plan Assessment & Plan (1) Multinodular thyroid: Comment: 2 nodules bx negative 02/28, f/u [facility], patient needs annual thyroid ultrasound to monitor Code(s): E04.2 - Nontoxic multinodular goiter Category: Medical Plan: Patient will follow-up with endocrinology, she had a normal TSH level (2) Depression: Code(s): F32.9 - Major depressive disorder, single episode, unspecified Category: Medical Plan: Continue bupropion (3) Headache: Comment: Negative brain CT 01/2025 Code(s): R51.9 - Headache, unspecified Category: Medical Plan: Improved Orders: Orders Comprehensive [place]. Panel Fast 1 Year 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 Lipid Panel 1 Year 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 Vitamin D 25-OH Total 1 Year 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 UA w Microscopic 1 Year 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 Complete Blood Count Auto Diff 1 Year 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 TSH reflex Free T4 1 Year 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
--- OUTSIDE RECORDS SUMMARY | 2025-03-05 12:36 | XMS_ITS | Clinical Summary ---
Author Organization [facility] [employer] [facility] it Address [address] [place] [address] Care Team Providers Care Anesthetist Name Role Phone Yudith Paez MD Primary Care Provider [phone] Surgical History Surgery Date Site/Laterality Comments OTHER SURGICAL HISTORY PROCEDURE: [place] OPEN TX CARPOMETACARPAL FRACTURE DISLOCATE THUMB OTHER SURGICAL HISTORY 12/2015 PROCEDURE: [place] DILATION & CURETTAGE DX&/THER NONOBSTETRIC; COMMENT: by Dr Doty, for miscarriage Medical History Medical History Date Comments Abnormal Pap smear of cervix DX: Abnormal Pap smear of cervix Herpes simplex DX:Herpes simple x; COMMENT: genital herpes Substance abuse (CMS/[facility] V24 , CMS/[facility] V28) DX:Substance abuse (HCC); CO MMENT: clean [...] age to complete this topic Care Teams Anesthetist Relationship Specialty Start Date End Date Yudith Paez MD PCP - General Internal Medicine 09/18/18
== END 2025-03-05 14:22 | disposition home or self-care (01) ==
LOC: HO.HMCC 11:47
PROVIDERS: PCP Internal Medicine; Visit Provider Internal Medicine
DX: E04.2 Nontoxic multinodular goiter (principal); F32.9 Major depressive disorder, single episode, unspecified; R51.9 Headache, unspecified

== ENCOUNTER → 2025-03-05 11:46 | Outpatient (BNVA) | payer OTHER, SELFPAY | PROVIDERS: PCP Internal Medicine; Visit Provider Internal Medicine | DX: E04.2 Nontoxic multinodular goiter (principal); R51.9 Headache, unspecified; F32.9 Major depressive disorder, single episode, unspecified | CPT/HCPCS: 96127 ==

== ENCOUNTER 2025-03-10 11:03 | Outpatient (AMB) | payer OTHER, SELFPAY ==
[2025-03-10 11:12] VITALS: BP 98/74; PULSE 54; O2SAT 98; BMI 31.6
--- NOTE | 2025-03-10 11:12 | A.OFFVIS_ITS ---
Vital Signs 03/10/25 11:12 Height 5 ft 3 in Weight 178 lb 5.663 oz BMI 31.6 BP 98/74 Blood Pressure Location Lt brachial Position Sitting Pulse 54 Pulse Source Pulse Oximeter Pulse Oximetry (%) 98 Oxygen Delivery Method Room Air Intake Visit Reasons: Nontoxic Multinodular Goiter Intake Note: Patient present today for Nontoxic multinodular goiter office visit. Clothes Drier Assembler Required: No Accompanied by: Self / Same As Patient Allergies No Known Allergies Allergy (Verified 03/10/25 11:15) Medication List - Last Reconciled 03/10/25 by Nikki Mccoy MD bupropion HCl XL 300 mg PO QAM fluticasone propionate 50 mcg/actuation 1 spray intranasal Q12H HPI Comments Details: 44 YO Female who is seen in F/U for a multinodular thyroid. She was previously following with Dr. Townsend, last seen April 2023. HPI She states her PCP palpated a thyroid nodule during her yearly physical. Thyroid ultrasound December 2022 revealed multiple bilateral nodules. 03/23/2023 she underwent FNA biopsy of her right lower pole 1.0 cm and right lower pole 1.1 cm thyroid nodules. Both with benign cytology. She does report the sensation of swelling in the neck and occasional R sided early pain. She denies any compressive symptoms currently. TSH was WNL. She denies any personal history of head or neck irradiation. She denies any family history of thyroid cancer. Interval history TSH normal February 2025 Ultrasound thyroid done February 2025, I reviewed the images myself which showed stable size of the previously mentioned right lower pole nodules, however showed a new right lower pole 1.4 cm nodule which is solid, hypoechoic, TR 4 category, the report mentions calcifications making it a TR 5 category though I do not see this myself, per [facility] guidelines this meets criteria for biopsy and we can proceed with the FNA. Reports some fullness in the neck, no dysphagia, no changes in voice Physical exam General: sitting comfortably in no acute distress HEENT: normocephalic/atraumatic, Neck: supple, symmetrical, no thyromegaly , no dorsocervical or supraclavicular fat pads Cardiac: normal heart sounds Pulm: normal breath sounds B/L, no added breath sounds Abd: not distended, no tenderness Extremities: no edema, no signs of myxedema Laboratory Tests 02/17/25 08:10 TSH 1.48 EXAMINATION: US THYROID 02/17/25 HISTORY: E04.2 - Nontoxic multinodular goiter TECHNIQUE: Real-time grayscale ultrasound imaging was performed and images were reviewed. COMPARISON: Comparison is made with the prior examination dated 01/16/2024. FINDINGS: SIZE: The right thyroid lobe measures 5.6 x 1.7 x 1.8 cm. The left thyroid lobe measures 4.0 x 1.2 x 1.8 cm. The isthmus measures 3 mm. FLOW: Flow to the gland is hypervascular. ECHOGENICITY: The echotexture of the gland is heterogeneous. NODULES: Multiple right sided nodules are again noted as described below: Nodule #: 1 Location: Right lower pole measuring 11 x 7 x 10 mm (previously 11 x 8 x 9 mm). Shape: Wider than tall (0 points) Margins: Smooth (0 points) Echotexture: Hypoechoic (2 points) Composition: Solid (2 points) Calcifications: Punctate calcifications (3 points) Total points: 7 TIRADS: TR5: Highly suspicious. Nodule #: 2 Location: Right lower pole measuring 14 x 7 x 12 mm (previously 13 x 6 x 13 mm). Shape: Wider than tall (0 points) Margins: Smooth (0 points) Echotexture: Hyperechoic (1 point) Composition: Mostly solid (2 points) Calcifications: None (0 points) Total points: 3 TIRADS: TR3: Mildly suspicious. Nodule #: 3 Location: Lower pole of the right thyroid lobe measuring 14 x 8 x 12 mm (not present previously). Shape: Wider than tall (0 points) Margins: Smooth (0 points) Echotexture: Hypoechoic (2 points) Composition: Mostly solid (2 points) Calcifications: Macrocalcifications (1 point) Total points: 5 TIRADS: TR4: Moderately suspicious. Nodule #: 4 Location: Right lower pole measuring 8 x 5 x 11 mm (previously 9 x 7 x 11 mm). Shape: Wider than tall (0 points) Margins: Smooth (0 points) Echotexture: Hypoechoic (2 points) Composition: Solid (2 points) Calcifications: None (0 points) Total points: 4 TIRADS: TR4: Moderately suspicious. US/US thyroid IMPRESSION: The previously seen three right-sided thyroid nodules are stable. However, there is a new 14 x 8 x 12 mm nodule at the lower pole of the right thyroid lobe (nodule #3 above) which is moderately suspicious. According to ACR TI-RADS guidelines below, ultrasound-guided fine-needle aspiration is recommended. ACR TI-RADS Guidelines TR1 (0 points): Benign, No follow-up or biopsy required TR2 (2 points): Not Suspicious, No biopsy or follow up indicated TR3 (3 points): Mildly Suspicious, FNA if >= 2.5 cm, Follow if >= 1.5 cm TR4 (4-6 points): Moderately Suspicious, FNA if >= 1.5 cm, Follow if >= 1.0 cm TR5 (>=7 points): Highly Suspicious, FNA if >= 1.0 cm, Follow if >= 0.5 cm Thyroid US: 01/04/2023 Right Thyroid Lobe: 5.1 x 2.2 x 1.4 cm, volume 7.9 mL. Parenchyma: The gland echotexture is heterogeneous. Thyroid vascularity is increased. Left Thyroid Lobe: 3.6 x 1.4 x 1.6 cm, volume 4.4 mL. Parenchyma: The gland echotexture is homogeneous. Thyroid vascularity is increased. Isthmus: 0.3 cm in maximum AP dimension. Estimated total number of nodules greater than or equal to 1 cm: 3. Sterile Processing Technician nodules are described as follows: 1. Location: Right mid. ?? ? Size: 1.0 x 0.90 x 0.83 cm, volume 0.40 mL. ?? ? Nodule characteristics: ?? ? Composition: Solid (2). ?? ? Echogenicity: Very hypoechoic (3). ?? ? Shape: Taller than wide (3). ?? ? Margins: Smooth (0). ?? ? Echogenic Foci: Macrocalcifications (1). Peripheral calcifications (2). ?? ? ACR TI-RADS total points: 11 ?? ? ACR TI-RADS category: 5 2. Location: Right inferior. ?? ? Size: 1.2 x 0.64 x 1.3 cm, volume 0.50 mL. ?? ? Nodule characteristics: ?? ? Composition: Solid/almost completely solid (2). ?? ? Echogenicity: Cannot be determined (1). ?? ? Shape: Not taller than wide (0). ?? ? Margins: Smooth (0). ?? ? Echogenic Foci: Macrocalcifications (1). ?? ? ACR TI-RADS total points: 4 ?? ? ACR TI-RADS category: 4 3. Location: Right inferior. ?? ? Size: 1.3 x 0.75 x 1.1 cm, volume 0.55 mL. ?? ? Nodule characteristics: ?? ? Composition: Mixed cystic and solid (1). ?? ? Echogenicity: Cannot be determined (1). ?? ? Shape: Not taller than wide (0). ?? ? Margins: Smooth (0). ?? ? Echogenic Foci: None (0). ?? ? ACR TI-RADS total points: 2 ?? ? ACR TI-RADS category: 2 NODES: No lymphadenopathy is seen in the tissue surrounding the thyroid gland. 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, 12), 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, 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 Tobacco Use Status: Former Tobacco user Tobacco use type: Cigarette Years Smoked: 20 plus e-Cigarette/Vaping Use: Never Used service: No Current occupational status: employed Cognitive needs: No Hearing needs: No Vision needs: Yes Physical Exam Vital Signs: Last Vital Signs Pulse 54 03/10/25 11:12 BP 98/74 06/02/25 11:12 Pulse Ox 98 03/10/25 11:12 Oxygen Delivery Method Room Air 03/10/25 11:12 BMI result Body Mass Index 31.6 Assessment & Plan Assessment & Plan (1) Multinodular thyroid: Comment: 2 nodules bx negative 02/28, f/u [facility] endo, patient needs annual thyroid ultr asound to monitor Code(s): E04.2 - Nontoxic multinodular goiter Category: Medical Plan: 44-year-old female with no family history of thyroid cancer, no personal history of head or neck radiation who is coming in today for follow up of nontoxic multinodular goiter. Diagnosed in December 2022 on ultrasound which showed multiple bilateral thyroid nodules, FNA biopsy of the right lower pole medial and lateral 1 cm nodules in March 2023 with benign cytology ([place] category 2). Subsequently she has been monitored with yearly surveillance ultrasounds. TSH normal February 2025 Ultrasound thyroid done February 2025, I reviewed the images myself which showed stable size of the previously mentioned right lower pole nodules, however showed a new right lower pole 1.4 cm nodule which is solid, hypoechoic, TR 4 category, the report mentions calcifications making it a TR 5 category though I do not see this myself, per [facility] guidelines this meets criteria for biopsy and we can proceed with the FNA. Reports some fullness in the neck, no dysphagia, no changes in voice I explained that it is common to have thyroid nodules. About 95% of the time these nodules are benign. However if the nodule is > 1 cm in size or suspicious on ultrasound then a fine need aspiration biopsy is recommended. We discussed that a FNAB involves 4-5 passes with a small gauge needle and material obtained is sent off for cytology.If the cytopathology is benign then the nodule will be followed annually with repeat ultrasounds. However if it is suspicious or malignant, we will need to discuss further management. Indeterminate cytology can be further investigated with repeat FNA, genetic testing or empiric lobectomy. Malignant cytology is managed with either lobectomy or total thyroidectomy. We discussed briefly that thyroid cancer is, in most patients, an indolent disease that does not affect mortality. We will arrange for FNA of the right lower 1.4 cm new nodule at next available opening and patient will follow up with me in clinic thereafter for results and further decision making. Plan: -scheduled for FNA of the right lower pole 1.4 cm new nodule and a follow up 2 weeks after to discuss results Plan I spent 30 minutes in reviewing the record, seeing the patient and documenting in the medical record. Orders: Orders US biopsy thyroid Today E04.2 - Nontoxic multinodular goiter Coding Level of Care Code Est Pt Level 4 (44215) Diagnoses Multinodular thyroid E04.2 Time Spent (min) 30
--- OUTSIDE RECORDS SUMMARY | 2025-03-10 12:16 | XMS_ITS | Clinical Summary ---
Author Organization [employer] [facility] it Address [address] [place] [address] Care Team Providers Care Brewer Helper Name Role Phone Yudith Paez MD Primary Care Provider [phone] Surgical History Surgery Date Site/Laterality Comments OTHER SURGICAL HISTORY PROCEDURE: SD OPEN TX CARPOMETACARPAL FRACTURE DISLOCATE THUMB OTHER SURGICAL HISTORY 12/2015 PROCEDURE: SD DILATION & CURETTAGE DX&/THER NONOBSTETRIC; COMMENT: by Dr Doty, for miscarriage Medical History Medical History Date Comments Abnormal Pap smear of cervix DX: Abnormal Pap smear of cervix Herpes simplex DX:Herpes simple x; COMMENT: genital herpes Substance abuse (CMS/[facility] V24 , CMS/[facility] V28) DX:Substance abuse (HCC); CO MMENT: [...] age to complete this topic Care Teams Brewer Helper Relationship Specialty Start Date End Date Yudith Paez MD PCP - General Internal Medicine 09/18/18
== END 2025-03-10 11:47 | disposition home or self-care (01) ==
PROVIDERS: PCP Internal Medicine; Visit Provider Student in an Organized Health Care Education/Training Program
DX: E04.2 Nontoxic multinodular goiter (principal)
CPT/HCPCS: 99214

== ENCOUNTER 2025-03-12 08:54 | Outpatient (REF) | payer OTHER, SELFPAY ==
--- OUTSIDE RECORDS SUMMARY | 2025-03-12 09:19 | XMS_ITS | Clinical Summary ---
Author Organization [employer] [facility] it Address [address] [place] [address] Care Team Providers Care Rod Bending Machine Operator Name Role Phone Yudith Paez MD Primary Care Provider [phone] Surgical History Surgery Date Site/Laterality Comments OTHER SURGICAL HISTORY PROCEDURE: MD OPEN TX CARPOMETACARPAL FRACTURE DISLOCATE THUMB OTHER SURGICAL HISTORY 12/2015 PROCEDURE: MD DILATION & CURETTAGE DX&/THER NONOBSTETRIC; COMMENT: by Dr Doty, for miscarriage Medical History Medical History Date Comments Abnormal Pap smear of cervix DX: Abnormal Pap smear of cervix Herpes simplex DX:Herpes simple x; COMMENT: genital herpes Substance abuse (CMS/[facility] V24 , CMS/[facility] V28) DX:Substance abuse (HCC); CO MMENT: [...] age to complete this topic Care Teams Rod Bending Machine Operator Relationship Specialty Start Date End Date Yudith Paez MD PCP - General Internal Medicine 09/18/18
--- NOTE | 2025-03-12 09:31 | PCN2_ITS ---
Brief Operative Note Date of procedure: 03/12/25 Pre-op diagnosis: right lower pole 1.4 cm thyroid nodule FNA biopsy Post-op diagnosis: same Procedure: THYROID FINE NEEDLE ASPIRATION PROCEDURE NOTE ? PROCEDURE PERFORMED: Ultrasound-guided FNA of thyroid nodule ? OPERATORS: Dr. Nikki Mccoy ? INDICATION: right lower pole 1.4 cm thyroid nodule ; FNA performed to assess for malignancy ? DESCRIPTION OF PROCEDURE: The indications for FNA (to assess for malignancy) we re reviewed with the patient in detail. Potential complications (e.g., bleeding, infection, damage to local structures, absence of clear diagnosis after FNA) were reviewed. Alternatives to FNA including conservative observation or surgery were described. The patient understood and agreed to proceed. This was documented by the signing of the written informed consent form. A time-out was performed to confirm the patient's identity and the site of planned FNA. The nodule of interest was identified using ultrasound (14 MHz linear array probe). The site of FNA was then draped in the usual fashion and carefully cleaned and prepared using alcohol swabs. The skin at the previously-identified site of needle insertion was iced and sprayed with numbing spray. Under ultrasound guidance, 4__ passes were performed using a 1.5-inch, 25-gauge needle, and sample was obtained via capillary action. The needle tip was clearly visualized to be within the nodule at the time of sampling for __4 of _4_ passes The patient tolerated the procedure well. There were no immediate complications. A small adhesive bandage was applied, and the patient was advised to take acetaminophen (rather than NSAIDs) for any discomfort and to report any signs of inflammation/infection or marked swelling. IMPRESSION: Technically successful ultrasound-guided fine needle aspiration of right lower pole 1.4 cm thyroid nodule . PLAN: The patient was advised that I will provide follow-up regarding the cytology result and any subsequent plans. Nikki Mccoy MD Endocrinology Attending Condition: stable Disposition: same day
== END 2025-03-12 08:55 | disposition home or self-care (01) ==
LOC: HO.US 08:54
PROVIDERS: PCP Internal Medicine; Visit Provider Student in an Organized Health Care Education/Training Program
DX: E04.2 Nontoxic multinodular goiter (principal)
CPT/HCPCS: 10005; 88173; 88305

== ENCOUNTER → 2025-03-12 08:54 | Outpatient (BNV) | payer OTHER, SELFPAY | PROVIDERS: PCP Internal Medicine; Visit Provider Student in an Organized Health Care Education/Training Program | DX: E04.1 Nontoxic single thyroid nodule (principal) | CPT/HCPCS: 10005 ==

== ENCOUNTER 2025-03-26 12:39 | Outpatient (AMB) | payer OTHER, SELFPAY ==
--- NOTE | 2025-03-26 11:17 | A.OFFVIS_ITS ---
Vital Signs 3 03/26/25 12:40 Height 5 ft 3 in Weight 178 lb 2.136 oz BMI 31.6 BP 98/68 Blood Pressure Location Rt brachial Position Sitting Pulse 65 Pulse Source Pulse Oximeter Pulse Oximetry (%) 97 Oxygen Delivery Method Room Air Intake Visit Reasons: f/u FNA biopsy Intake Note: Patient present today for FNA biopsy follow up. Software Program Manager Required: No Accompanied by: Daughter Allergies No Known Allergies Allergy (Verified 03/26/25 12:44) HPI Comments Details: 44 YO Female who is seen in F/U for a multinodular thyroid. HPI She states her PCP palpated a thyroid nodule during her yearly physical. Thyroid ultrasound December 2022 revealed multiple bilateral nodules. 03/23/2023 she underwent FNA biopsy of her right lower pole 1.0 cm and right lower pole 1.1 cm thyroid nodules. Both with benign cytology. She does report the sensation of swelling in the neck and occasional R sided early pain. She denies any compressive symptoms currently. TSH was WNL. She denies any personal history of head or neck irradiation. She denies any family history of thyroid cancer. TSH normal February 2025 Ultrasound thyroid done February 2025, I reviewed the images myself which showed stable size of the previously mentioned right lower pole nodules, however showed a new right lower pole 1.4 cm nodule which is solid, hypoechoic, TR 4 category, the report mentions calcifications making it a TR 5 category though I do not see this myself, per MADHURI guidelines this meets criteria for biopsy and we can proceed with the FNA. Reports some fullness in the neck, no dysphagia, no changes in voice Interval history 03/12/2025: Status post FNA biopsy of the right lower pole 1.4 cm nodule which came back with benign cytology, [place] category 2. Physical exam General: sitting comfortably in no acute distress HEENT: normocephalic/atraumatic, Neck: supple, symmetrical, no thyromegaly , no dorsocervical or supraclavicular fat pads Cardiac: normal heart sounds Pulm: normal breath sounds B/L, no added breath sounds Abd: not distended, no tenderness Extremities: no edema, no signs of myxedema Laboratory Tests 02/17/25 08:10 TSH 1.48 EXAMINATION: US THYROID 02/17/25 HISTORY: E04.2 - Nontoxic multinodular goiter TECHNIQUE: Real-time grayscale ultrasound imaging was performed and images were reviewed. COMPARISON: Comparison is made with the prior examination dated 01/16/2024. FINDINGS: SIZE: The right thyroid lobe measures 5.6 x 1.7 x 1.8 cm. The left thyroid lobe measures 4.0 x 1.2 x 1.8 cm. The isthmus measures 3 mm. FLOW: Flow to the gland is hypervascular. ECHOGENICITY: The echotexture of the gland is heterogeneous. NODULES: Multiple right sided nodules are again noted as described below: Nodule #: 1 Location: Right lower pole measuring 11 x 7 x 10 mm (previously 11 x 8 x 9 mm). Shape: Wider than tall (0 points) Margins: Smooth (0 points) Echotexture: Hypoechoic (2 points) Composition: Solid (2 points) Calcifications: Punctate calcifications (3 points) Total points: 7 TIRADS: TR5: Highly suspicious. Nodule #: 2 Location: Right lower pole measuring 14 x 7 x 12 mm (previously 13 x 6 x 13 mm). Shape: Wider than tall (0 points) Margins: Smooth (0 points) Echotexture: Hyperechoic (1 point) Composition: Mostly solid (2 points) Calcifications: None (0 points) Total points: 3 TIRADS: TR3: Mildly suspicious. Nodule #: 3 Location: Lower pole of the right thyroid lobe measuring 14 x 8 x 12 mm (not present previously). Shape: Wider than tall (0 points) Margins: Smooth (0 points) Echotexture: Hypoechoic (2 points) Composition: Mostly solid (2 points) Calcifications: Macrocalcifications (1 point) Total points: 5 TIRADS: TR4: Moderately suspicious. Nodule #: 4 Location: Right lower pole measuring 8 x 5 x 11 mm (previously 9 x 7 x 11 mm). Shape: Wider than tall (0 points) Margins: Smooth (0 points) Echotexture: Hypoechoic (2 points) Composition: Solid (2 points) Calcifications: None (0 points) Total points: 4 TIRADS: TR4: Moderately suspicious. US/US thyroid IMPRESSION: The previously seen three right-sided thyroid nodules are stable. However, there is a new 14 x 8 x 12 mm nodule at the lower pole of the right thyroid lobe (nodule #3 above) which is moderately suspicious. According to ACR TI-RADS guidelines below, ultrasound-guided fine-needle aspiration is recommended. ACR TI-RADS Guidelines TR1 (0 points): Benign, No follow-up or biopsy required TR2 (2 points): Not Suspicious, No biopsy or follow up indicated TR3 (3 points): Mildly Suspicious, FNA if >= 2.5 cm, Follow if >= 1.5 cm TR4 (4-6 points): Moderately Suspicious, FNA if >= 1.5 cm, Follow if >= 1.0 cm TR5 (>=7 points): Highly Suspicious, FNA if >= 1.0 cm, Follow if >= 0.5 cm Thyroid US: 01/04/2023 Right Thyroid Lobe: 5.1 x 2.2 x 1.4 cm, volume 7.9 mL. Parenchyma: The gland echotexture is heterogeneous. Thyroid vascularity is increased. Left Thyroid Lobe: 3.6 x 1.4 x 1.6 cm, volume 4.4 mL. Parenchyma: The gland echotexture is homogeneous. Thyroid vascularity is increased. Isthmus: 0.3 cm in maximum AP dimension. Estimated total number of nodules greater than or equal to 1 cm: 3. Jde Developer nodules are described as follows: 1. Location: Right mid. ?? ? Size: 1.0 x 0.90 x 0.83 cm, volume 0.40 mL. ?? ? Nodule characteristics: ?? ? Composition: Solid (2). ?? ? Echogenicity: Very hypoechoic (3). ?? ? Shape: Taller than wide (3). ?? ? Margins: Smooth (0). ?? ? Echogenic Foci: Macrocalcifications (1). Peripheral calcifications (2). ?? ? ACR TI-RADS total points: 11 ?? ? ACR TI-RADS category: 5 2. Location: Right inferior. ?? ? Size: 1.2 x 0.64 x 1.3 cm, volume 0.50 mL. ?? ? Nodule characteristics: ?? ? Composition: Solid/almost completely solid (2). ?? ? Echogenicity: Cannot be determined (1). ?? ? Shape: Not taller than wide (0). ?? ? Margins: Smooth (0). ?? ? Echogenic Foci: Macrocalcifications (1). ?? ? ACR TI-RADS total points: 4 ?? ? ACR TI-RADS category: 4 3. Location: Right inferior. ?? ? Size: 1.3 x 0.75 x 1.1 cm, volume 0.55 mL. ?? ? Nodule characteristics: ?? ? Composition: Mixed cystic and solid (1). ?? ? Echogenicity: Cannot be determined (1). ?? ? Shape: Not taller than wide (0). ?? ? Margins: Smooth (0). ?? ? Echogenic Foci: None (0). ?? ? ACR TI-RADS total points: 2 ?? ? ACR TI-RADS category: 2 NODES: No lymphadenopathy is seen in the tissue surrounding the thyroid gland. Labs: Laboratory Tests 12/31/22 10:01 TSH 1.19 [facility] Medical History (Updated 03/05/25 @ 15:31 by Yudith Paez MD) Epidermal cyst Multinodular thyroid Nipple pain Mastalgia Annual physical exam Anxiety Depression Surgical History History of removal of cyst (~06/06/24) Status post excision of lipoma (~02/02/23) Hx of thumb surgery Hx of dilation and curettage Family History Father Glaucoma Mother Glaucoma Maternal Aunt Breast cancer Lung cancer Cervical cancer Maternal Aunt Breast cancer Paternal Aunt Breast cancer Social History Household Members Other:: 2 children (5, 12), 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, 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 Tobacco Use Status: Former Tobacco user Tobacco use type: Cigarette Years Smoked: 20 plus e-Cigarette/Vaping Use: Never Used service: No Current occupational status: employed Cognitive needs: No Hearing needs: No Vision needs: Yes Assessment & Plan Assessment & Plan (1) Multinodular thyroid: Comment: 2 nodules bx negative 02/28, f/u C endo, patient needs annual thyroid ultrasound to monitor Code(s): E04.2 - Nontoxic multinodular goiter Category: Medical Plan: 44-year-old female with no family history of thyroid cancer, no personal history of head or neck radiation who is coming in today for follow up of nontoxic multinodular goiter. Diagnosed in December 2022 on ultrasound which showed multiple bilateral thyroid nodules, FNA biopsy of the right lower pole medial and lateral 1 cm nodules in March 2023 with benign cytology ([place] category 2). Subsequently she has been monitored with yearly surveillance ultrasounds. TSH normal February 2025 Ultrasound thyroid done February 2025, I reviewed the images myself which showed stable size of the previously mentioned right lower pole nodules, however showed a new right lower pole 1.4 cm nodule which is solid, hypoechoic, TR 4 category, the report mentions calcifications making it a TR 5 category though I do not see this myself, per M[facility] guidelines this meets criteria for biopsy and we can proceed with the FNA. Reports some fullness in the neck, no dysphagia, no changes in voice 03/12/2025: Status post FNA biopsy of the right lower 1.4 cm thyroid nodule, which came back with benign cytology, [place] category 2. I discussed with the patient that benign results yield less than 3% chance of malignancy. At this point we will plan to repeat an ultrasound in 1 year from the last 1. Plan: -ultrasound of the thyroid ordered for February 2026 with follow up in March 2026 -ordered TSH with a reflex free T4 to be done prior to follow up in March 2026 Plan See above Orders: Orders 2 US thyroid 02/16/26 E04.2 - Nontoxic multinodular goiter TSH reflex Free T4 02/09/26 E04.2 - Nontoxic multinodular goiter Patient Instructions: Please do ultrasound of the thyroid in February 2026 a few weeks prior to your follow up in March 2026, someone we will call you to schedule this -do blood work a few days prior to your appointment in March 2026, orders are in place Coding Level of Care Code Est Pt Level 3 (24698) Diagnoses Multinodular thyroid E04.2
[2025-03-26 12:40] VITALS: BP 98/68; PULSE 65; O2SAT 97; BMI 31.6
--- OUTSIDE RECORDS SUMMARY | 2025-03-26 14:27 | XMS_ITS | Clinical Summary ---
Author Organization [employer] [facility] it Address [address] [place] [address] Care Team Providers Care Meat Butcher Name Role Phone Yudith Paez MD Primary Care Provider [phone] Surgical History Surgery Date Site/Laterality Comments OTHER SURGICAL HISTORY PROCEDURE: MO OPEN TX CARPOMETACARPAL FRACTURE DISLOCATE THUMB OTHER SURGICAL HISTORY 12/2015 PROCEDURE: MO DILATION & CURETTAGE DX&/THER NONOBSTETRIC; COMMENT: by Dr Doty, for miscarriage Medical History Medical History Date Comments Abnormal Pap smear of cervix DX: Abnormal Pap smear of cervix Herpes simplex DX:Herpes simple x; COMMENT: genital herpes Substance abuse ([facility] V24 , CMS/[facility] V28) DX:Substance abuse (HCC); CO MMENT: clean [...] age to complete this topic Care Teams Meat Butcher Relationship Specialty Start Date End Date Yudith Paez MD PCP - General Internal Medicine 09/18/18
== END 2025-03-26 12:51 | disposition home or self-care (01) ==
LOC: HO.ENCR 12:39
PROVIDERS: PCP Internal Medicine; Visit Provider Student in an Organized Health Care Education/Training Program
DX: E04.2 Nontoxic multinodular goiter (principal)
CPT/HCPCS: 99213